=== PATIENT | male | born 1945 | race Caucasian/White ===

== ENCOUNTER 2018-11-30 08:34 | Day surgery (SDC) | payer MEDICARE, BC ==
[~2018-11-30 08:34] MED LIST: Cefuroxime 10 MG/ML SYRINGE EYELF SCH; Lidocaine 1% PF 2 ML SDV INJECT SCH; Pilocarpine 4% Ophth Soln 15 ML Bot EYELF SCH; Polymyxin B/Trimethoprim 10 ML Bottle EYELF SCH
--- NOTE | 2018-11-30 09:09 | PCM.PREANE ---
Preanesthetic Assessment - Anesthesia/Transfusion/Family Hx Anesthesia History: Prior Anesthesia Without Reaction Family History of Anesthesia Reaction: No Transfusion History: No Prior Transfusion(s) - Review of Systems General: No Symptoms Pulmonary: No Symptoms Cardiovascular: No Symptoms Gastrointestinal: No Symptoms Neurological: No Symptoms Other: Reports: None - Physical Assessment NPO Status Date: 11/29/18 NPO Status Time: 22:00 Pulse: 61 O2 Sat by Pulse Oximetry: 97 Respiratory Rate: 16 Blood Pressure: 123/59 Temperature: 98.2 C Weight: 62.7 kg ASA Class: 2 Mental Status: Alert & Oriented x3 Airway Class: Mallampati = 1 Dentition: Reports: Normal Dentition Thyro-Mental Finger Breadths: 3 Mouth Opening Finger Breadths: 3 ROM/Head Extension: Full Lungs: Clear to Auscultation, Normal Respiratory Effort Cardiovascular: Regular Rate, Regular Rhythm - Allergies Allergies/Adverse Reactions: Allergies Allergy/AdvReac Type Severity Reaction Status Date / Time amoxicillin [From Augmentin] Allergy Cannot Verified 11/29/18 06:59 Remember clavulanic acid Allergy Cannot Verified 11/29/18 06:59 [From Augmentin] Remember clindamycin Allergy Cannot Verified 11/29/18 06:59 Remember diclofenac [From Voltaren] Allergy Cannot Verified 11/29/18 06:59 Remember paroxetine [From Paxil] Allergy Cannot Verified 11/29/18 06:59 Remember sulfamethoxazole Allergy Cannot Verified 11/29/18 06:59 [From Bactrim] Remember trimethoprim [From Bactrim] Allergy Cannot Verified 11/29/18 06:59 Remember - Acknowledgements Anesthesia Type Planned: MAC Pt an Appropriate Candidate for the Planned Anesthesia: Yes Alternatives and Risks of Anesthesia Discussed w Pt/Guardian: Yes Pt/Guardian Understands and Agrees with Anesthesia Plan: Yes PreAnesthesia Questionnaire HEENT History: Reports: Cataract Cardiovascular History: Reports: None, Other (See Below) (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, does see iron handler for this, pt states does get "a little light headed", no other symptoms with episodes) Respiratory History: Reports: None Gastrointestinal History: Reports: None Genitourinary History: Reports: None Musculoskeletal History: Reports: Arthritis Neurological History: Reports: None Psychiatric History: Reports: Anxiety, Depression Endocrine/Metabolic History: Reports: None - Past Surgical History HEENT Surgical History: Reports: Tonsillectomy Cardiovascular Surgical History: Reports: None Respiratory Surgical History: Reports: None GI Surgical History: Reports: Colonoscopy Male Surgical History: Reports: TURP-Transurethral Resection of Prostate Musculoskeletal Surgical History: Reports: Shoulder Surgery ((R) rotator cuff, bone spur) - SUBSTANCE USE Smoking Status *Q: Never Smoker - HOME MEDS Home Medications: Home Meds Acetaminophen [Tylenol] 650 mg PO Q4H PRN 11/29/18 [History] Bifidobacterium Infantis [Align] 10.5 mg PO DAILY 11/29/18 [History] Bismuth Subsalicylate [Pepto Bismol] 1 dose PO ASDIRECTED 11/29/18 [History] Calcium Carbonate [Calcium] 500 mg PO DAILY 11/29/18 [History] Loperamide [Imodium] 2 mg PO ASDIRECTED 11/29/18 [History] Multivitamin [Poly-Vitamin] 1 tab PO DAILY 11/29/18 [History] Psyllium [Metamucil] 1 cap PO ASDIRECTED 11/29/18 [History] Sertraline [Zoloft] 50 mg PO QAM 11/29/18 [History] Sertraline [Zoloft] 150 mg PO QPM 11/29/18 [History] - CURRENT (IN HOUSE) MEDS Current Meds: Current Medications Brimonidine Tartrate (Alphagan 0.2% Ophth Soln) 0 ml EYELF ASDIRECTED CORRY Stop: 11/30/18 18:00 Cefuroxime Sodium (Zinacef) 0 mg EYELF ASDIRECTED CORRY Stop: 11/30/18 18:00 Lidocaine HCl (Xylocaine-Mpf 1%) 0 ml INJECT ASDIRECTED CORRY Stop: 11/30/18 18:00 Ofloxacin (Ocuflox 0.3% Ophth Soln) 0 ml EYELF ASDIRECTED CORRY Stop: 11/30/18 18:00 Phenylephrine HCl (Shanatnu-Synephrine 2.5% Ophth Soln) 0 ml EYELF ASDIRECTED CORRY Stop: 11/30/18 18:00 Pilocarpine HCl (Pilocar 4% Ophth Soln) 0 ml EYELF ASDIRECTED CORRY Stop: 11/30/18 18:00 Tetracaine HCl (Tetracaine 0.5% Steri-Unit Maria Guadalupe) 0 ml EYELF ASDIRECTED CORRY Stop: 11/30/18 18:00 Tropicamide (Mydriacyl 1% Ophth Soln) 0 ml EYELF ASDIRECTED CORRY Stop: 11/30/18 18:00
[2018-11-30] MEDS: Ofloxacin 0.3% Ophth Soln 5 ML Bottle EYELF SCH ×2 (09:13→09:50)
[2018-11-30] MEDS: Brimonidine 0.2% Ophth Soln 5 ML Bottle EYELF SCH ×3 (09:18→12:28)
[2018-11-30] MEDS: Phenylephrine 2.5% Ophth Soln 2 ML Bot EYELF SCH ×6 (09:23→12:10)
[2018-11-30] MEDS: Tropicamide 1% Ophth Soln 15 ML Bottle EYELF SCH ×4 (09:27→10:29)
[2018-11-30] MEDS: Tetracaine HCl/PF 0.5% 4 ML Bottle EYELF SCH ×3 (11:12→12:15)
--- NOTE | 2018-11-30 12:32 | PCM48HPAN ---
Post Anesthesia Note - EVALUATION WITHIN 48HRS OF ANESTHETIC Vital Signs in Normal Range: Yes Patient Participated in Evaluation: Yes Respiratory Function Stable: Yes Airway Patent: Yes Cardiovascular Function Stable: Yes Hydration Status Stable: Yes Pain Control Satisfactory: Yes Nausea and Vomiting Control Satisfactory: Yes Mental Status Recovered: Yes Pulse Rate: 58 SaO2: 96 Resp Rate: 16 Temperature: 98.2 C Blood Pressure: 118/16
== END 2018-11-30 12:38 | disposition home or self-care (01) ==
LOC: JD.SDS 08:34
PROVIDERS: ATTEND Ophthalmology
DX: H25.813 Combined forms of age-related cataract, bilateral (principal); F41.9 Anxiety disorder, unspecified; F32.9 Major depressive disorder, single episode, unspecified; Z88.1 Allergy status to other antibiotic agents; Z88.8 Allergy status to other drugs, medicaments and biological substances; Z88.0 Allergy status to penicillin; Z88.2 Allergy status to sulfonamides; Z79.899 Other long term (current) drug therapy
CPT/HCPCS: 66984; A9270; C1780; J0697; J2001

== ENCOUNTER 2018-12-28 08:22 | Day surgery (SDC) | payer MEDICARE, BC ==
[~2018-12-28 08:22] MED LIST changes: -Cefuroxime 10 MG/ML SYRINGE EYELF SCH; +Cefuroxime 10 MG/ML SYRINGE EYERT SCH; -Pilocarpine 4% Ophth Soln 15 ML Bot EYELF SCH; +Pilocarpine 4% Ophth Soln 15 ML Bot EYERT SCH; -Polymyxin B/Trimethoprim 10 ML Bottle EYELF SCH
[2018-12-28] MEDS: Ofloxacin 0.3% Ophth Soln 5 ML Bottle EYERT SCH ×3 (08:32→10:17)
[2018-12-28] MEDS: Brimonidine 0.2% Ophth Soln 5 ML Bottle EYERT SCH ×3 (08:39→10:17)
--- NOTE | 2018-12-28 08:40 | PCM.PREANE ---
Preanesthetic Assessment - Anesthesia/Transfusion/Family Hx Anesthesia History: Prior Anesthesia Without Reaction Family History of Anesthesia Reaction: No Transfusion History: No Prior Transfusion(s) - Review of Systems General: No Symptoms Pulmonary: No Symptoms Cardiovascular: No Symptoms Gastrointestinal: No Symptoms Neurological: No Symptoms Other: Reports: None - Physical Assessment NPO Status Date: 12/27/18 NPO Status Time: 20:00 Pulse: 63 O2 Sat by Pulse Oximetry: 98 Respiratory Rate: 20 Blood Pressure: 103/57 Temperature: 98.3 C Height: 1.78 m Weight: 63.503 kg ASA Class: 2 Mental Status: Alert & Oriented x3 Airway Class: Mallampati = 2 Dentition: Reports: Normal Dentition Thyro-Mental Finger Breadths: 3 Mouth Opening Finger Breadths: 3 ROM/Head Extension: Full Lungs: Clear to Auscultation, Normal Respiratory Effort Cardiovascular: Regular Rate, Regular Rhythm - Allergies Allergies/Adverse Reactions: Allergies Allergy/AdvReac Type Severity Reaction Status Date / Time amoxicillin [From Augmentin] Allergy Itching Verified 12/27/18 10:48 clavulanic acid Allergy Itching Verified 12/27/18 10:48 [From Augmentin] sulfamethoxazole Allergy Itching Verified 12/27/18 10:48 [From Bactrim] trimethoprim [From Bactrim] Allergy Itching Verified 12/27/18 10:48 clindamycin AdvReac Diarrhea Verified 12/27/18 12:37 diclofenac [From Voltaren] AdvReac Diarrhea Verified 12/27/18 12:37 paroxetine [From Paxil] AdvReac Stomach Verified 12/27/18 12:37 Upset - Acknowledgements Anesthesia Type Planned: MAC Pt an Appropriate Candidate for the Planned Anesthesia: Yes Alternatives and Risks of Anesthesia Discussed w Pt/Guardian: Yes Pt/Guardian Understands and Agrees with Anesthesia Plan: Yes PreAnesthesia Questionnaire HEENT History: Reports: Cataract Cardiovascular History: Reports: None, Other (See Below) (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, does see intelligence operations for this, pt states does get "a little light headed", no other symptoms with episodes) Respiratory History: Reports: None Gastrointestinal History: Reports: None Genitourinary History: Reports: None Musculoskeletal History: Reports: Arthritis Neurological History: Reports: None Psychiatric History: Reports: Anxiety, Depression Endocrine/Metabolic History: Reports: None - Past Surgical History HEENT Surgical History: Reports: Cataract Surgery ((B) feet), Naso-Sinus Surgery , Oral Surgery, Tonsillectomy Cardiovascular Surgical History: Reports: None Respiratory Surgical History: Reports: None GI Surgical History: Reports: Colonoscopy, EGD Male Surgical History: Reports: TURP-Transurethral Resection of Prostate Neurological Surgical History: Reports: Other (See Below) Musculoskeletal Surgical History: Reports: Shoulder Surgery ((R) rotator cuff, bone spur) - SUBSTANCE USE Smoking Status *Q: Never Smoker - HOME MEDS Home Medications: Home Meds Acetaminophen [Tylenol] 650 mg PO Q4H PRN 11/29/18 [History] Bifidobacterium Infantis [Align] 4 mg PO DAILY 11/29/18 [History] Calcium Carbonate [Calcium] 1,000 mg PO DAILY 11/29/18 [History] Loperamide [Imodium] 2 mg PO ASDIRECTED PRN 11/29/18 [History] Multivitamin [Poly-Vitamin] 1 tab PO DAILY 11/29/18 [History] Psyllium [Metamucil] 1 cap PO TID 11/29/18 [History] Sertraline [Zoloft] 150 mg PO DAILY 11/29/18 [History] Al-Glutamine 4,500 mg PO DAILY 12/27/18 [History] Bismuth Subsalicylate [Pepto Bismol] 6 tab PO ASDIRECTED 12/27/18 [History] - CURRENT (IN HOUSE) MEDS Current Meds: Current Medications Brimonidine Tartrate (Alphagan 0.2% Ophth Soln) 0 ml EYERT ASDIRECTED CORRY Stop: 12/28/18 18:00 Cefuroxime Sodium (Zinacef) 0 mg EYERT ASDIRECTED CORRY Stop: 12/28/18 18:00 Lidocaine HCl (Xylocaine-Mpf 1%) 0 ml INJECT ASDIRECTED CORRY Stop: 12/28/18 18:00 Ofloxacin (Ocuflox 0.3% Ophth Soln) 0 ml EYERT ASDIRECTED CORRY Stop: 12/28/18 18:00 Last Admin: 12/28/18 08:32 Dose: 1 drop Phenylephrine HCl (Shantanu-Synephrine 2.5% Ophth Soln) 0 ml EYERT ASDIRECTED CORRY Stop: 12/28/18 18:00 Pilocarpine HCl (Pilocar 4% Ophth Soln) 0 ml EYERT ASDIRECTED CORRY Stop: 12/28/18 18:00 Tetracaine HCl (Tetracaine 0.5% Steri-Unit Maria Guadalupe) 0 ml EYERT ASDIRECTED CORRY Stop: 12/28/18 18:00 Tropicamide (Mydriacyl 1% Ophth Soln) 0 ml EYERT ASDIRECTED CORRY Stop: 12/28/18 18:00
[2018-12-28] MEDS: Phenylephrine 2.5% Ophth Soln 2 ML Bot EYERT SCH ×5 (08:46→10:00)
[2018-12-28] MEDS: Tropicamide 1% Ophth Soln 15 ML Bottle EYERT SCH ×4 (08:51→09:46)
[2018-12-28] MEDS: Tetracaine HCl/PF 0.5% 4 ML Bottle EYERT SCH ×2 (09:56→10:06)
--- NOTE | 2018-12-28 10:22 | PCM48HPAN ---
Post Anesthesia Note - EVALUATION WITHIN 48HRS OF ANESTHETIC Vital Signs in Normal Range: Yes Patient Participated in Evaluation: Yes Respiratory Function Stable: Yes Airway Patent: Yes Cardiovascular Function Stable: Yes Hydration Status Stable: Yes Pain Control Satisfactory: Yes Nausea and Vomiting Control Satisfactory: Yes Mental Status Recovered: Yes Pulse Rate: 63 SaO2: 100 Resp Rate: 20 Temperature: 98.3 C Blood Pressure: 103/57
== END 2018-12-28 10:27 | disposition home or self-care (01) ==
LOC: JD.SDS 08:22
PROVIDERS: ATTEND Ophthalmology
DX: H25.811 Combined forms of age-related cataract, right eye (principal); H43.813 Vitreous degeneration, bilateral; H35.373 Puckering of macula, bilateral; H35.3131 Nonexudative age-related macular degeneration, bilateral, early dry stage; F41.9 Anxiety disorder, unspecified; F32.9 Major depressive disorder, single episode, unspecified; Z98.42 Cataract extraction status, left eye; Z96.1 Presence of intraocular lens; Z79.899 Other long term (current) drug therapy; Z88.8 Allergy status to other drugs, medicaments and biological substances; Z88.1 Allergy status to other antibiotic agents; Z88.2 Allergy status to sulfonamides
CPT/HCPCS: 66984; A9270; C1780; J0697; J2001

== ENCOUNTER 2020-05-29 15:08 | Emergency (ER) | payer MEDICARE, BC ==
[2020-05-29] MEDS ORDERED: Sodium Chloride 0.9% 10 ML Syringe FLUSH PRN (15:31)
--- NOTE | 2020-05-29 16:12 | EDM.PDOC ---
<Irvin Dye - Last Filed: 05/29/20 15:59> ED HPI GENERAL MEDICAL PROBLEM - General Chief Complaint: Cardiovascular Problem Stated Complaint: RAPID HEART RATE SENT BY [facility] Time Seen by Provider: 05/29/20 15:31 Source of Information: Reports: Patient History Limitations: Reports: No Limitations - History of Present Illness INITIAL COMMENTS - FREE TEXT/NARRATIVE: Mr. Cha is a 74 YO male that presents to the ED with pain in his chest and a rapid heart rate. Shortly after waking up this morning, he began to experience dizziness, chest pain located behind the sternum, diaphoresis, and shortness of breath. He says that these symptoms are intermittent and has experienced several episodes of them today. Pain is described as a dull ache located behind the sternum. He was diagnosed with a tachyarrhythmia several years ago. Today's episode is described as similar to past incidents but worse. He was seeing Dr. James at [facility] in [place] until approximately three years ago. Possibility of ablation was considered at that time but was not going to be performed until symptoms began interfering with daily activities. Currently not on medication for arrhythmias. Denies syncope, nausea, vomiting, and abdominal pain. Has not taken any OTC medications for pain relief. Onset: Today, Sudden Duration: Hour(s): Location: Reports: Chest Quality: Reports: Ache, Dull Improves with: Reports: Rest Worsens with: Reports: Movement Associated Symptoms: Reports: Shortness of Breath, Other (Dizziness) - Related Data Allergies Allergy/AdvReac Type Severity Reaction Status Date / Time amoxicillin [From Augmentin] Allergy Itching Verified 05/29/20 15:24 clavulanic acid Allergy Itching Verified 05/29/20 15:24 [From Augmentin] sulfamethoxazole Allergy Itching Verified 05/29/20 15:24 [From Bactrim] trimethoprim [From Bactrim] Allergy Itching Verified 05/29/20 15:24 clindamycin AdvReac Diarrhea Verified 05/29/20 15:24 diclofenac [From Voltaren] AdvReac Diarrhea Verified 05/29/20 15:24 paroxetine [From Paxil] AdvReac Stomach Verified 05/29/20 15:24 Upset Home Meds: Home Meds Calcium Carbonate [Calcium] 1,000 mg PO DAILY 11/29/18 [History] Loperamide [Imodium] 2 mg PO ASDIRECTED PRN 11/29/18 [History] Multivitamin [Poly-Vitamin] 1 tab PO DAILY 11/29/18 [History] Psyllium [Metamucil] 1 cap PO TID 11/29/18 [History] Sertraline [Zoloft] 150 mg PO QPM 11/29/18 [History] Acetaminophen [Tylenol] 650 mg PO Q4H PRN 05/20/19 [History] Sertraline [Zoloft] 50 mg PO QAM 05/20/19 [History] Past Medical History HEENT History: Reports: Cataract Cardiovascular History: Reports: Other (See Below) (Tachyarrhythmia. Specific rhythm not stated by patient.) Gastrointestinal History: Reports: Diverticulosis, Gastritis, Hemorrhoids, Irritable Bowel Syndrome, Other (See Below) Other Gastrointestinal History: colitis Genitourinary History: Reports: BPH Musculoskeletal History: Reports: Arthritis, Back Pain, Chronic, Neck Pain, Chronic, Osteoporosis Psychiatric History: Reports: Anxiety, Depression - Past Surgical History HEENT Surgical History: Reports: Cataract Surgery, Naso-Sinus Surgery, Oral Surgery, Tonsillectomy Cardiovascular Surgical History: Reports: None Respiratory Surgical History: Reports: None GI Surgical History: Reports: Colonoscopy, EGD Male Surgical History: Reports: Prostate Biopsy, TURP-Transurethral Resection of Prostate, Other (See Below) Other Male Surgeries/Procedures: cystoscopy Endocrine Surgical History: Reports: None Neurological Surgical History: Reports: None, Other (See Below) Musculoskeletal Surgical History: Reports: Shoulder Surgery Other Musculoskeletal Surgeries/Procedures:: hammertoe correction Oncologic Surgical History: Reports: None Dermatological Surgical History: Reports: None Social & Family History - Tobacco Use Smoking Status *Q: Never Smoker - Caffeine Use Caffeine Use: Reports: Soda - Recreational Drug Use Recreational Drug Use: No ED ROS GENERAL - Review of Systems Review Of Systems: See Below Constitutional: Reports: Diaphoresis Respiratory: Reports: Shortness of Breath (During episodes of chest p ) Cardiovascular: Reports: Chest Pain, Lightheadedness GI/Abdominal: Denies: Abdominal Pain, Nausea, Vomiting Neurological: Reports: Dizziness ED EXAM, GENERAL - Physical Exam Exam: See Below Exam Limited By: No Limitations General Appearance: Alert, No Apparent Distress Eye Exam: Bilateral Eye: PERRL Head: Atraumatic, Normocephalic Respiratory/Chest: No Respiratory Distress, Lungs Clear, Normal Breath Sounds, No Accessory Muscle Use, Chest Non-Tender Cardiovascular: Regular Rate, Rhythm, No Edema, No Gallop, No JVD, No Murmur, No Rub GI/Abdominal: Normal Bowel Sounds, Soft, Non-Tender, No Distention Neurological: Alert, Oriented Skin Exam: Warm, Dry, Normal Color Departure - Departure Disposition: DC/Tfer to Acute Hospital 02 Clinical Impression: NSTEMI (non-ST elevated myocardial infarction) Referrals: Zoey Chaidez NP [Primary Care Provider] - Forms: ED Department Discharge Sepsis Event Note (ED) - Evaluation Sepsis Screening Result: No Definite Risk <Katherine Belle - Last Filed: 05/29/20 18:01> EKG INTERPRETATION EKG Date: 05/29/20 Time: 17:21 Rhythm: NSR Rate (Beats/Min): 59 [place]: Normal P-Wave: Present QRS: Normal ST-T: Normal QT: Normal Comparison: No Change EKG Interpretation Comments: No obvious ischemia or acute ST changes noted, reviewed by myself and Dr. Green. Course - Vital Signs Last Recorded V/S: Last Vital Signs Temp 97.4 F 05/29/20 15:15 Pulse 61 05/29/20 15:15 Resp 20 05/29/20 15:15 BP 106/68 05/29/20 15:15 Pulse Ox 98 05/29/20 15:15 - Orders/Labs/Meds Orders: Active Orders 24 hr Category Date Time Status EKG 12 Lead [EKG Documentation Completion] [RC] URGENT Care 05/29/20 15:25 Active Peripheral IV Care [RC] . DIRECTED Care 05/29/20 15:32 Active CORONAVIRUS COVID-19 RAPID [MOLEC] Stat Lab 05/29/20 17:34 Received Heparin Sodium/D5W [Heparin 25,000 Units in D5W 500 ML] Med 05/29/20 16:26 Ordered 25,000 units in 500 ml IV TITRATE Sodium Chloride 0.9% [Saline Flush] Med 05/29/20 15:31 Active 10 ml FLUSH ASDIRECTED PRN Peripheral IV Insertion Adult [OM.PC] Stat Oth 05/29/20 15:32 Ordered Medication Orders Heparin Sodium/Dextrose (Heparin 25,000 Units In D5w 500 Ml) 25,000 units in 500 mls @ 15.023 mls/hr IV TITRATE CORRY; Protocol Last Admin: 05/29/20 16:38 Dose: 12 units/kg/hr, 15.023 mls/hr Documented by: NELIDA Cosigned by: TATO Sodium Chloride (Saline Flush) 10 ml FLUSH ASDIRECTED PRN PRN Reason: Keep Vein Open Last Admin: 05/29/20 15:45 Dose: 10 ml Documented by: NELIDA Labs: Laboratory Tests 05/29/20 05/29/20 05/29/20 Range/Units 15:43 15:43 15:43 WBC 7.15 (4.23-9.07) K/mm3 RBC 4.79 (4.63-6.08) M/mm3 Hgb 14.2 (13.7-17.5) gm/dl Hct 43.3 (40.1-51.0) % MCV 90.4 (79.0-92.2) fl MCH 29.6 (25.7-32.2) pg MCHC 32.8 (32.2-35.5) g/dl RDW Std Deviation 42.6 (35.1-43.9) fL Plt Count 159 L (163-337) K/mm3 MPV 9.8 (9.4-12.3) fl Neut % (Auto) 71.2 H (34.0-67.9) % Lymph % (Auto) 17.5 L (21.8-53.1) % [place] % (Auto) 7.7 (5.3-12.2) % Eos % (Auto) 2.9 (0.8-7.0) Baso % (Auto) 0.3 (0.1-1.2) % Neut # (Auto) 5.09 (1.78-5.38) K/mm3 Lymph # (Auto) 1.25 L (1.32-3.57) K/mm3 [place] # (Auto) 0.55 (0.30-0.82) K/mm3 Eos # (Auto) 0.21 (0.04-0.54) K/mm3 Baso # (Auto) 0.02 (0.01-0.08) K/mm3 PT 10.9 (9.7-12.0) SECONDS INR 1.00 APTT 25 (22-31) SECONDS Sodium 140 (136-145) mEq/L Potassium 4.2 (3.5-5.1) mEq/L Chloride 104 (98-107) mEq/L Carbon Dioxide 30 (21-32) mEq/L Anion Gap 10.2 (5-15) BUN 20 H (7-18) mg/dL Creatinine 1.1 (0.7-1.3) mg/dL Est Cr Clr Drug Dosing 52.16 mL/min Estimated GFR (MDRD) > 60 (>60) mL/min BUN/Creatinine Ratio 18.2 H (14-18) Glucose 81 L (83-115) mg/dL Calcium 8.9 (8.5-10.1) mg/dL Magnesium 2.2 (1.8-2.4) mg/dl Total Bilirubin 0.4 (0.2-1.0) mg/dL AST 24 (15-37) U/L ALT 26 (16-63) U/L Alkaline Phosphatase 65 (46-116) U/L Troponin I 0.216 H* (0.00-0.056) ng/mL NT-Pro-B Natriuret Pep (0-125) pg/mL Total Protein 6.9 (6.4-8.2) g/dl Albumin 3.6 (3.4-5.0) g/dl Globulin 3.3 gm/dL Albumin/Globulin Ratio 1.1 (1-2) // Range/Units 15:43 WBC (4.23-9.07) K/mm3 RBC (4.63-6.08) M/mm3 Hgb (13.7-17.5) gm/dl Hct (40.1-51.0) % MCV (79.0-92.2) fl MCH (25.7-32.2) pg MCHC (32.2-35.5) g/dl RDW Std Deviation (35.1-43.9) fL Plt Count (163-337) K/mm3 MPV (9.4-12.3) fl Neut % (Auto) (34.0-67.9) % Lymph % (Auto) (21.8-53.1) % [place] % (Auto) (5.3-12.2) % Eos % (Auto) (0.8-7.0) Baso % (Auto) (0.1-1.2) % Neut # (Auto) (1.78-5.38) K/mm3 Lymph # (Auto) (1.32-3.57) K/mm3 [place] # (Auto) (0.30-0.82) K/mm3 Eos # (Auto) (0.04-0.54) K/mm3 Baso # (Auto) (0.01-0.08) K/mm3 PT (9.7-12.0) SECONDS INR APTT (22-31) SECONDS Sodium (136-145) mEq/L Potassium (3.5-5.1) mEq/L Chloride (98-107) mEq/L Carbon Dioxide (21-32) mEq/L Anion Gap (5-15) BUN (7-18) mg/dL Creatinine (0.7-1.3) mg/dL Est Cr Clr Drug Dosing mL/min Estimated GFR (MDRD) (>60) mL/min BUN/Creatinine Ratio (14-18) Glucose (83-115) mg/dL Calcium (8.5-10.1) mg/dL Magnesium (1.8-2.4) mg/dl Total Bilirubin (0.2-1.0) mg/dL AST (15-37) U/L ALT (16-63) U/L Alkaline Phosphatase (46-116) U/L Troponin I (0.00-0.056) ng/mL NT-Pro-B Natriuret Pep 606 H (0-125) pg/mL Total Protein (6.4-8.2) g/dl Albumin (3.4-5.0) g/dl Globulin gm/dL Albumin/Globulin Ratio (1-2) Meds: Medications Generic Name Dose Route Start Last Admin Trade Name Freq PRN Reason Stop Dose Admin Heparin Sodium/Dextrose 25,000 units in 500 mls @ 15.023 mls/hr 05/29/20 16:26 05/29/20 16:38 Heparin 25,000 Units In D5w 500 Ml IV 12 units/kg/hr TITRATE CORRY 15.023 mls/hr Administration Protocol 12 UNITS/KG/HR Sodium Chloride 10 ml 05/29/20 15:31 05/29/20 15:45 Saline Flush FLUSH 10 ml ASDIRECTED PRN Administration Keep Vein Open Discontinued Medications Generic Name Dose Route Start Last Admin Trade Name Breezy PRN Reason Stop Dose Admin Aspirin 324 mg 05/29/20 16:25 05/29/20 16:35 Aspirin PO 05/29/20 16:26 324 mg ONETIME ONE Administration Heparin Sodium (Porcine) 4,000 units 05/29/20 16:25 05/29/20 16:36 Heparin Sodium IVPUSH 05/29/20 16:26 4,000 units .BOLUS ONE Administration - Re-Assessments/Exams Free Text/Narrative Re-Assessment/Exam: 05/29/20 16:18 I have read and reviewed the student's HPI and examined the patient and agree with DARREN Hawthorne-student. Will obtain EKG, chest x-ray, baseline labs to rule out IN, patient is not suffering from any sort of tachyarrhythmias at today's exam, normal sinus rhythm 59 bpm, with what is perceived to be some T wave inversion in V1 and V2 and aVL, but these are also nonspecific findings. Otherwise no obvious ST depression or elevation noted. The provider at the [facility] was worried about getting him a stress test, possibly tomorrow, but it appears that this is not available at our facility tomorrow. We will try to get a Holter monitor lined up for outpatient management, and get him lined up for outpatient stress test sometime next week. 05/29/20 16:36 Patient's laboratory evaluation has returned, troponin I is elevated at 0.216 other laboratory evaluation is essentially within normal limits. Have ordered 224 mg aspirin and heparin bolus and drip for initial management. Patient will need transport to [place], he would prefer to go to [facility] for management, have called them and have been in contact with Dr. Chowdhury, hospitalist for further management. 05/29/20 18:00 Dr. Chowdhury hospitalist does accept for management, patient be transferred to [facility] in [place] for further evaluation and management. Departure - Departure Time of Disposition: 16:37 Reason for Transfer *Q: Other (NSTEMI) Condition: Good Sepsis Event Note (ED) - Focused Exam Vital Signs: Vital Signs Temp Pulse Resp BP Pulse Ox 05/29/20 15:15 97.4 F 61 20 106/68 98 - My Orders Last 24 Hours: My Active Orders 05/29/20 15:31 Sodium Chloride 0.9% [Saline Flush] 10 ml FLUSH ASDIRECTED PRN 05/29/20 15:32 Peripheral IV Care [RC] . DIRECTED Peripheral IV Insertion Adult [OM.PC] Stat 05/29/20 16:26 Heparin Sodium/D5W [Heparin 25,000 Units in D5W 500 ML] 25,000 units in 500 ml IV TITRATE 05/29/20 17:34 CORONAVIRUS COVID-19 RAPID [MOLEC] Stat - Assessment/Plan Last 24 Hours: My Active Orders 05/29/20 15:31 Sodium Chloride 0.9% [Saline Flush] 10 ml FLUSH ASDIRECTED PRN 05/29/20 15:32 Peripheral IV Care [RC] . DIRECTED Peripheral IV Insertion Adult [OM.PC] Stat 05/29/20 16:26 Heparin Sodium/D5W [Heparin 25,000 Units in D5W 500 ML] 25,000 units in 500 ml IV TITRATE 05/29/20 17:34 CORONAVIRUS COVID-19 RAPID [MOLEC] Stat
[2020-05-29] MEDS ORDERED: Aspirin 81 MG Tab.Chew PO ONE (16:25)
[2020-05-29] MEDS ORDERED: Heparin Sodium 5,000 Units/ML Vial IVPUSH ONE (16:25)
[2020-05-29] MEDS ORDERED: Heparin Sodium/D5W 25,000 UNITS/500 ML BAG IV SCH (16:26)
--- NOTE | 2020-05-29 16:26 | CR ---
Chest: 2 views of the chest were obtained. Comparison: Prior chest x-ray of 05/30/17. Heart size and mediastinum are normal. Lungs are hyperinflated compatible with emphysematous change. No acute parenchymal change is seen. Slight degenerative change is noted within the spine. Prior resection of the distal right clavicle is noted. Impression: 1. Probable emphysematous change. 2. Nothing acute is otherwise appreciated. Diagnostic code #2 This report was dictated in MDT
== END 2020-05-29 18:57 ==
LOC: JD.ED 15:08
DX: I21.4 Non-ST elevation (NSTEMI) myocardial infarction (principal); F41.9 Anxiety disorder, unspecified; F32.9 Major depressive disorder, single episode, unspecified; Z20.828 Contact with and (suspected) exposure to other viral communicable diseases; Z88.1 Allergy status to other antibiotic agents; Z88.2 Allergy status to sulfonamides; Z88.6 Allergy status to analgesic agent; Z88.8 Allergy status to other drugs, medicaments and biological substances; Z79.899 Other long term (current) drug therapy
CPT/HCPCS: 36415; 71046; 80053; 83735; 83880; 84484; 85025; 85610; 85730; 93005; 96365; 96366; 96376; 99285; A9270; J1644; U0002; 93010; 99284

== ENCOUNTER 2021-03-08 18:44 | Observation (INO) | payer MEDICARE, BC ==
[2021-03-08] MEDS ORDERED: Sodium Chloride 0.9% 10 ML Syringe FLUSH PRN (19:27)
[2021-03-08] MEDS ORDERED: Morphine 4 MG/ML Syringe IVPUSH ONE ×2 (19:30→22:12)
--- NOTE | 2021-03-08 19:38 | EDM.PDOC ---
ED HPI GENERAL MEDICAL PROBLEM - General Chief Complaint: Back Pain or Injury Stated Complaint: FELL ON BACK Time Seen by Provider: 03/08/21 19:11 Source of Information: Reports: Patient History Limitations: Reports: No Limitations - History of Present Illness INITIAL COMMENTS - FREE TEXT/NARRATIVE: Patient arrived to ED by private vehicle Incident occurred about 1500 today He reports falling down a steep embankment, approximately 8 foot vertical distance States he got too close to the edge which was eroded and the ground gave way Complains primarily of pain to the right flank area Pain severity is rated 7/10, with intermittent "spasms" of severity 10/10 Pain is exacerbated by movement and certain positions Also has some difficulty breathing due to pain Denies neck or back pain Denies weakness or paresthesias of extremities Denies head injury or loss of consciousness Denies abdominal pain, nausea, vomiting He has not taken anything for pain Right Middle Back Pain Score (Numeric/FACES): 10 - Related Data Allergies Allergy/AdvReac Type Severity Reaction Status Date / Time amoxicillin [From Augmentin] Allergy Itching Verified 03/09/21 00:29 clavulanic acid Allergy Itching Verified 03/09/21 00:29 [From Augmentin] sulfamethoxazole Allergy Itching Verified 03/09/21 00:29 [From Bactrim] trimethoprim [From Bactrim] Allergy Itching Verified 03/09/21 00:29 clindamycin AdvReac Diarrhea Verified 03/09/21 00:29 diclofenac [From Voltaren] AdvReac Diarrhea Verified 03/09/21 00:29 paroxetine [From Paxil] AdvReac Stomach Verified 03/09/21 00:29 Upset Home Meds: Home Meds Calcium Carbonate [Calcium] 1,000 mg PO DAILY 11/29/18 [History] Loperamide [Imodium] 2 mg PO ASDIRECTED PRN 11/29/18 [History] Multivitamin [Poly-Vitamin] 1 tab PO DAILY 11/29/18 [History] Psyllium [Metamucil] 1 cap PO TID 11/29/18 [History] Sertraline [Zoloft] 150 mg PO BEDTIME 11/29/18 [History] Acetaminophen [Tylenol] 650 mg PO Q4H PRN 05/20/19 [History] Sertraline [Zoloft] 50 mg PO QAM 05/20/19 [History] Past Medical History HEENT History: Reports: Cataract Cardiovascular History: Reports: Other (See Below) (Tachyarrhythmia. Specific rhythm not stated by patient.) Respiratory History: Reports: None Gastrointestinal History: Reports: Diverticulosis, Gastritis, Hemorrhoids, Irritable Bowel Syndrome, Other (See Below) Other Gastrointestinal History: colitis Genitourinary History: Reports: BPH [employer] History: Reports: None Musculoskeletal History: Reports: Arthritis, Back Pain, Chronic, Neck Pain, Chronic, Osteoporosis Neurological History: Reports: None Psychiatric History: Reports: Anxiety, Depression Endocrine/Metabolic History: Reports: None Hematologic History: Reports: None Immunologic History: Reports: None Oncologic (Cancer) History: Reports: None Dermatologic History: Reports: None - Infectious Disease History Infectious Disease History: Reports: C-Difficile - Past Surgical History HEENT Surgical History: Reports: Cataract Surgery, Naso-Sinus Surgery, Oral Surgery, Tonsillectomy Respiratory Surgical History: Reports: None GI Surgical History: Reports: Colonoscopy, EGD Male Surgical History: Reports: Prostate Biopsy, TURP-Transurethral Resection of Prostate, Other (See Below) Other Male Surgeries/Procedures: cystoscopy Endocrine Surgical History: Reports: None Neurological Surgical History: Reports: None, Other (See Below) Musculoskeletal Surgical History: Reports: Shoulder Surgery Other Musculoskeletal Surgeries/Procedures:: hammertoe correction Social & Family History - Tobacco Use Tobacco Use Status *Q: Never Tobacco User Second Hand Smoke Exposure: No - Caffeine Use Caffeine Use: Reports: Soda - Recreational Drug Use Recreational Drug Use: No ED ROS GENERAL - Review of Systems Review Of Systems: See Below Free Text/Narrative/Comment: Constitutional - no fever Eyes - no eye pain; no visual disturbance ENT - no rhinorrhea; no congestion; no epistaxis Cardiovascular - right posterior/lateral chest pain Respiratory - shortness of breath; no cough Gastrointestinal - right flank pain; no abdominal pain; no nausea; no vomiting; no diarrhea Genitourinary - no dysuria Musculoskeletal - no neck pain; no back pain; no extremity injury Neurological - no headache; no speech disturbance; no weakness ED EXAM, GENERAL - Physical Exam Exam: See Below Free Text/Narrative:: Constitutional - awake; alert; moderate to severe pain distress Head - no facial swelling or weakness Eyes - extra ocular motion intact; conjunctiva normal ENT - no nasal deformity; no epistaxis; normal phonation; mucus membranes moist; Neck - no swelling; no cervical spine tenderness Respiratory - normal respiratory effort; no crackles or wheezing; no stridor; equal breath sounds bilaterally; no crepitus; severe tenderness to thoracic palpation right infra axillary area Cardiovascular - regular rhythm; normal rate; S1; S2; grade 1/6 systolic murmur GI/Abdomen - normal bowel sounds; soft; no tenderness; no rebound; no guarding; no mass Musculoskeletal - grossly normal strength and motion, mild limitation of right upper extremity motion due to flank pain; no swelling or deformity; no thoracic or lumbar vertebral tenderness; localized ecchymosis 4-5 cm size flexor aspect left forearm Skin - warm; dry; curvilinear ecchymosis right costovertebral area with tenderness on palpation Neurologic - normal speech; no weakness; gait intact Psychiatric - normal mood and affect; memory and attention normal Course - Vital Signs Text/Narrative:: . Considered etiologies included: Fall, contusion, rib fracture, pneumothorax, blunt abdominal trauma Symptoms and examination discussed Analgesic treatment was provided with IV morphine Investigations were initiated At reevaluation he noted no significant change in pain severity A second dose of morphine was provided for further analgesic treatment Results were discussed, with findings for multiple right rib fractures, no acute intra-abdominal abnormality In consideration of his pain severity, age, and functional impairment due to pain, admission was felt to be appropriate Case was discussed with Dr. Rodriguez (hospitalist) at [id number] who accepted patient for admission Bridge orders were provided Last Recorded V/S: Last Vital Signs Temp 36.3 C 03/08/21 18:57 Pulse 55 L 03/08/21 18:57 Resp 12 03/08/21 18:57 BP 121/85 03/08/21 18:57 Pulse Ox 98 03/08/21 18:57 - Orders/Labs/Meds Orders: Active Orders 24 hr Category Date Time Status Abdomen Pelvis w Cont [CT] Stat Exams 03/08/21 19:29 Taken Chest 2V [CR] Stat Exams 03/08/21 19:27 Taken Sodium Chloride 0.9% [Saline Flush] Med 03/08/21 19:27 Active 10 ml FLUSH ASDIRECTED PRN Peripheral IV Insertion Adult [OM.PC] Stat Oth 03/08/21 19:26 Ordered Medication Orders Hydromorphone HCl (Hydromorphone 1 Mg/Ml Syringe) 1 mg IVPUSH Q4H PRN PRN Reason: Pain (severe 7-10) Oxycodone/Acetaminophen (Acetaminophen/Oxycodone 325-5 Mg Tab) 1 tab PO Q4H PRN PRN Reason: Pain (moderate 4-6) Last Admin: 03/09/21 00:46 Dose: 1 tab Documented by: FRANK Sodium Chloride (Sodium Chloride 0.9% 10 Ml Syringe) 10 ml FLUSH ASDIRECTED PRN PRN Reason: Keep Vein Open Last Admin: 03/08/21 19:36 Dose: 10 ml Documented by: NELIDA Labs: Laboratory Tests 03/08/21 03/08/21 03/08/21 Range/Units 19:33 19:33 21:53 WBC 15.99 H (4.23-9.07) K/mm3 RBC 4.76 (4.63-6.08) M/mm3 Hgb 14.3 (13.7-17.5) gm/dl Hct 43.2 (40.1-51.0) % MCV 90.8 (79.0-92.2) fl MCH 30.0 (25.7-32.2) pg MCHC 33.1 (32.2-35.5) g/dl RDW Std Deviation 42.6 (35.1-43.9) fL Plt Count 177 (163-337) K/mm3 MPV 9.6 (9.4-12.3) fl Neut % (Auto) 84.2 H (34.0-67.9) % Lymph % (Auto) 8.5 L (21.8-53.1) % Bland % (Auto) 6.1 (5.3-12.2) % Eos % (Auto) 0.8 (0.8-7.0) Baso % (Auto) 0.1 (0.1-1.2) % Neut # (Auto) 13.48 H (1.78-5.38) K/mm3 Lymph # (Auto) 1.36 (1.32-3.57) K/mm3 Bland # (Auto) 0.97 H (0.30-0.82) K/mm3 Eos # (Auto) 0.12 (0.04-0.54) K/mm3 Baso # (Auto) 0.02 (0.01-0.08) K/mm3 Manual Slide Review Normal smear Sodium 142 (136-145) mEq/L Potassium 3.8 (3.5-5.1) mEq/L Chloride 103 (98-107) mEq/L Carbon Dioxide 31 (21-32) mEq/L Anion Gap 11.8 (5-15) BUN 23 H (7-18) mg/dL Creatinine 1.2 (0.7-1.3) mg/dL Est Cr Clr Drug Dosing 46.41 mL/min Estimated GFR (MDRD) 59 (>60) mL/min BUN/Creatinine Ratio 19.2 H (14-18) Glucose 142 H (83-115) mg/dL Calcium 8.3 L (8.5-10.1) mg/dL Total Bilirubin 0.3 (0.2-1.0) mg/dL AST 21 (15-37) U/L ALT 26 (16-63) U/L Alkaline Phosphatase 103 (46-116) U/L Total Protein 6.9 (6.4-8.2) g/dl Albumin 3.7 (3.4-5.0) g/dl Globulin 3.2 gm/dL Albumin/Globulin Ratio 1.2 (1-2) Urine Color Yellow (Yellow) Urine Appearance Clear (Clear) Urine pH 7.0 (5.0-8.0) Ur Specific [place] 1.015 (1.005-1.030) Urine Protein Negative (Negative) Urine Glucose (UA) Negative (Negative) Urine Ketones Negative (Negative) Urine Occult Blood Negative (Negative) Urine Nitrite Negative (Negative) Urine Bilirubin Negative (Negative) Urine Urobilinogen 0.2 (0.2-1.0) Ur Leukocyte Esterase Negative (Negative) Urine RBC 0-5 (0-5) /hpf Urine WBC 0-5 (0-5) /hpf Ur Squamous Epith Cells 0-5 (0-5) /hpf Urine Bacteria Few (FEW) /hpf Urine Mucus Few (FEW) /hpf Meds: Medications Generic Name Dose Route Start Last Admin Trade Name Freq PRN Reason Stop Dose Admin Hydromorphone HCl 1 mg 03/09/21 00:32 Hydromorphone 1 Mg/Ml Syringe IVPUSH Q4H PRN Pain (severe 7-10) Oxycodone/Acetaminophen 1 tab 03/09/21 00:32 03/09/21 00:46 Acetaminophen/Oxycodone 325-5 Mg Tab PO 1 tab Q4H PRN Administration Pain (moderate 4-6) Sodium Chloride 10 ml 03/08/21 19:27 03/08/21 19:36 Sodium Chloride 0.9% 10 Ml Syringe FLUSH 10 ml ASDIRECTED PRN Administration Keep Vein Open Discontinued Medications Generic Name Dose Route Start Last Admin Trade Name Freq PRN Reason Stop Dose Admin Iopamidol 100 ml 03/08/21 20:12 03/08/21 20:30 Iopamidol 612 Mg/Ml 100 Ml Bottle IVPUSH 03/08/21 20:13 100 ml ONETIME ONE Administration Morphine Sulfate 4 mg 03/08/21 19:30 03/08/21 19:37 Morphine 4 Mg/Ml Syringe IVPUSH 03/08/21 19:31 4 mg ONETIME ONE Administration Morphine Sulfate 4 mg 03/08/21 22:12 03/08/21 22:25 Morphine 4 Mg/Ml Syringe IVPUSH 03/08/21 22:13 4 mg ONETIME ONE Administration Sodium Chloride 10 ml 03/08/21 20:12 03/08/21 20:30 Sodium Chloride 0.9% 10 Ml Syringe FLUSH 03/08/21 20:13 10 ml ONETIME ONE Administration - Radiology Interpretation Free Text/Narrative:: XR chest, 2 views, interpreted by bond underwriter: No pneumothorax, no infiltrate, no rib fractures appreciated CT abdomen/pelvis, IV contrast, preliminary radiology report: 1. Linear fractures to the right 9th, 10th, and 11th ribs. There is mild associated posttraumatic pleural thickening in the right lung base. 2. No other acute posttraumatic abdominal pelvic injuries appreciated. 3. Incidental findings as detailed ... Departure - Departure Time of Disposition: 22:43 Disposition: Refer to Observation Condition: Fair Clinical Impression: Fall with injury Qualifiers: Encounter type: initial encounter Qualified Code(s): W19.XXXA - Unspecified fall, initial encounter Ribs, multiple fractures Qualifiers: Encounter type: initial encounter Fracture type: closed Laterality: right Qualified Code(s): S22.41XA - Multiple fractures of ribs, right side, initial encounter for closed fracture - Discharge Information Sepsis Event Note (ED) - Evaluation Sepsis Screening Result: No Definite Risk - Focused Exam Vital Signs: Vital Signs Temp Pulse Resp BP Pulse Ox 03/08/21 18:57 36.3 C 55 L 12 121/85 98 - My Orders Last 24 Hours: My Active Orders 03/08/21 19:26 Peripheral IV Insertion Adult [OM.PC] Stat 03/08/21 19:27 Chest 2V [CR] Stat Sodium Chloride 0.9% [Saline Flush] 10 ml FLUSH ASDIRECTED PRN 03/08/21 19:29 Abdomen Pelvis w Cont [CT] Stat - Assessment/Plan Last 24 Hours: My Active Orders 03/08/21 19:26 Peripheral IV Insertion Adult [OM.PC] Stat 03/08/21 19:27 Chest 2V [CR] Stat Sodium Chloride 0.9% [Saline Flush] 10 ml FLUSH ASDIRECTED PRN 03/08/21 19:29 Abdomen Pelvis w Cont [CT] Stat
[2021-03-08] MEDS ORDERED: Sodium Chloride 0.9% 10 ML Syringe FLUSH ONE (20:12)
[2021-03-08] MEDS ORDERED: Iopamidol 612 MG/ML 100 ML Bottle IVPUSH ONE (20:12)
[2021-03-09] MEDS ORDERED: HYDROmorphone 1 MG/ML Syringe IVPUSH PRN (00:32)
[2021-03-09] MEDS: Acetaminophen/oxyCODONE 325-5 MG Tab PO PRN ×2 (00:46→06:09)
--- NOTE | 2021-03-09 07:07 | CR ---
Chest: 2 views of the chest were obtained. Comparison: Prior chest x-rays of 05/29/20 and 05/30/17. Heart size is slightly enlarged. Lungs show no acute parenchymal change. Slight granulomatous change is seen within the left lung. Bony structures are osteopenic. No definite acute osseous abnormality is appreciated. Impression: 1. Heart size is slightly enlarged. 2. Mild granulomatous change within the left lung. 3. Nothing acute is otherwise seen. Diagnostic code #2
--- NOTE | 2021-03-09 07:39 | CT ---
CT abdomen and pelvis Technique: Multiple axial sections were obtained through the abdomen and pelvis. Intravenous contrast was utilized. No oral contrast has been given. Reconstructed coronal and sagittal images were obtained. Comparison: Prior chest x-ray performed earlier on the same day (7:43 PM). Findings: Fractures are identified within the right ninth, tenth and eleventh posterior ribs. These are most likely acute. Slight pleural thickening is seen in these areas. Mild areas of pleural calcifications are seen. Mild areas of atelectasis are also noted within both lung bases. Low-density lesion is noted within the right lobe of the liver which I believe most likely represents a cyst measuring about 9 mm. No additional abnormalities are appreciated within the liver. Spleen appears normal in size. Minimal hiatal hernia is noted. Adrenal glands show no nodule. Pancreas shows no discrete abnormality. Gallbladder contains no calcified gallstones. Both kidneys show minimal low density findings compatible with probable minimal cysts. Several minimal nonobstructing calculi are seen within the right kidney. Atherosclerotic change is seen within the aorta with no aneurysm. Atherosclerotic change continues into the iliac vessels. No retroperitoneal adenopathy or mesenteric abnormalities are seen. Prostate gland is slightly enlarged with calcifications. Appendix is not definitely visualized. Slight degenerative change with mild scoliosis is noted within the spine. No acute osseous abnormality is otherwise seen. Impression: 1. Fractures within the right ninth through eleventh ribs posteriorly with mild adjacent pleural thickening. These rib fractures are likely acute. 2. Other findings as noted above. No other acute abnormality is seen. Diagnostic code #3 I agree with preliminary report from [facility], finalized on 03/08/21, 10:03 PM CDT, code 1
--- NOTE | 2021-03-09 08:25 | PCM.HP.2 ---
<Elijah James - Last Filed: 03/09/21 11:29> H&P History of Present Illness - General Date of Service: 03/09/21 Admit Problem/Dx: Admission Diagnosis/Problem Admission Diagnosis/Problem Rib injury Source of Information: Patient, Old Records, Provider, RN, RN Notes Reviewed History Limitations: Reports: No Limitations - History of Present Illness Initial Comments - Free Text/Narative: This is a 75-year-old male who presented to ED on 03/08/2021 with pain after a fall. Reports incident occurred around 1500 hrs. states he got too close to an edge of an embankment and the ground gave way leading to an approximately 8 foot fall. Reports 7 out of 10 pain in the right flank area is constant and intermittent spasms of 10 out of 10 pain. Reports pain is worsened with movement and certain positions. Denies any other neck or back pain. Reports shortness of breath due to the pain. Denies any weakness or paresthesias of extremities. Denies head injury, loss of consciousness, reymundo pain, nausea, vomiting. Stated he did not take anything prior to arrival. In the ED temp was 36.3 Celsius. Pulse 55. Respirations 12. Blood pressure 121/85. Pulse ox 90%. Labs are obtained showing a leukocytosis of 15.99. Hemoglobin 14.3. Platelet 177,000. Neutrophils are elevated 84.2. Sodium 142. Potassium 3.8. Chloride 103. Carbon dioxide 31. Anion gap 11.8. BUN is elevated 23. Creatinine 1.2. GFR is 59. Glucose 142. Bilirubin 0.3. AST is 21, ALT 26, alkaline phosphatase 103. Albumin is 3.7. UA is negative. Chest x-ray is obtained showing slightly enlarged heart size and mild granulomatous change within the left lung but nothing acute. CT of the abdomen and pelvis is obtained showing fractures within the right ninth through 11th ribs posteriorly and mild adjacent pleural thickening but no other acute abnormalities are noted. There are other incidental findings. He is given morphine, Dilaudid, and percocet for pain. It is felt given his advanced age, pain severity, and impairment due to pain that he should be admitted to the hospital. He subsequently admitted observation status to the medical surgical floor for pain management of his multiple rib fractures. He carries a history of tachyarrhythmia, diverticulosis, gastritis, IBS, BPH, arthritis, chronic back pain, chronic neck pain, osteoporosis, anxiety, depre ssion, prior C. difficile infection. He was never smoker. He is a full code. Right Middle Back Pain Score (Numeric/FACES): 8 - Related Data Allergies/Adverse Reactions: Allergies Allergy/AdvReac Type Severity Reaction Status Date / Time amoxicillin [From Augmentin] Allergy Itching Verified 03/09/21 00:29 clavulanic acid Allergy Itching Verified 03/09/21 00:29 [From Augmentin] sulfamethoxazole Allergy Itching Verified 03/09/21 00:29 [From Bactrim] trimethoprim [From Bactrim] Allergy Itching Verified 03/09/21 00:29 clindamycin AdvReac Diarrhea Verified 03/09/21 00:29 diclofenac [From Voltaren] AdvReac Diarrhea Verified 03/09/21 00:29 paroxetine [From Paxil] AdvReac Stomach Verified 03/09/21 00:29 Upset Home Medications: Home Meds Calcium Carbonate [Calcium] 1,000 mg PO DAILY 11/29/18 [History] Loperamide [Imodium] 2 mg PO ASDIRECTED PRN 11/29/18 [History] Multivitamin [Poly-Vitamin] 1 tab PO DAILY 11/29/18 [History] Psyllium [Metamucil] 1 cap PO TID 11/29/18 [History] Sertraline [Zoloft] 150 mg PO BEDTIME 11/29/18 [History] Acetaminophen [Tylenol] 650 mg PO Q4H PRN 05/20/19 [History] Sertraline [Zoloft] 50 mg PO QAM 05/20/19 [History] Past Medical History HEENT History: Reports: Other (See Below) Other HEENT History: wear glasses; voice is off Cardiovascular History: Reports: [place] Respiratory History: Reports: None Gastrointestinal History: Reports: Diverticulosis, GERD, Hemorrhoids, Irritable Bowel Syndrome, Other (See Below) Other Gastrointestinal History: colitis Genitourinary History: Reports: BPH COMMODITY TRADER History: Reports: None Musculoskeletal History: Reports: Arthritis, Back Pain, Chronic, Neck Pain, Chronic, Osteoporosis Neurological History: Reports: None Psychiatric History: Reports: Anxiety, Depression Endocrine/Metabolic History: Reports: Osteopenia Hematologic History: Reports: None Immunologic History: Reports: None Oncologic (Cancer) History: Reports: None Dermatologic History: Reports: None - Infectious Disease History Infectious Disease History: Reports: C-Difficile - Past Surgical History HEENT Surgical History: Reports: Cataract Surgery, Naso-Sinus Surgery, Oral Surgery, Tonsillectomy Cardiovascular Surgical History: Reports: None Respiratory Surgical History: Reports: None GI Surgical History: Reports: Colonoscopy, EGD Male Surgical History: Reports: Prostate Biopsy, TURP-Transurethral Resection of Prostate, Other (See Below) Other Male Surgeries/Procedures: cystoscopy Endocrine Surgical History: Reports: None Neurological Surgical History: Reports: None Musculoskeletal Surgical History: Reports: Shoulder Surgery Other Musculoskeletal Surgeries/Procedures:: hammertoe correction Oncologic Surgical History: Reports: None Dermatological Surgical History: Reports: None Social & Family History - Family History Family Medical History: No Pertinent Family History - Tobacco Use Tobacco Use Status *Q: Never Tobacco User Second Hand Smoke Exposure: No - Caffeine Use Caffeine Use: Reports: None - Recreational Drug Use Recreational Drug Use: No H&P Review of Systems - Review of Systems: Review Of Systems: See Below General: Reports: No Symptoms. Denies: Fever, Chills, Malaise, Weakness, Fatigue HEENT: Reports: No Symptoms. Denies: Headaches, Sore Throat Pulmonary: Reports: Pleuritic Chest Pain. Denies: Shortness of Breath, Wheezing, Cough, Sputum Cardiovascular: Reports: Chest Pain (Lateral right around to back. ). Denies: Palpitations, Dyspnea on Exertion, Edema, Lightheadedness Gastrointestinal: Reports: No Symptoms. Denies: Abdominal Pain, Constipation, Diarrhea, Nausea, Vomiting Genitourinary: Reports: No Symptoms. Denies: Pain Musculoskeletal: Reports: Neck Pain (chronic ), Back Pain (chronic ) Skin: Reports: No Symptoms. Denies: Cyanosis Psychiatric: Reports: No Symptoms. Denies: Confusion Neurological: Reports: No Symptoms Hematologic/Lymphatic: Reports: No Symptoms Immunologic: Reports: No Symptoms Exam - Exam Exam: See Below - Vital Signs Vital Signs: Last Vital Signs Temp 98.8 F 03/09/21 07:13 Pulse 53 L 03/09/21 07:13 Resp 16 03/09/21 07:13 BP 119/66 03/09/21 07:13 Pulse Ox 95 03/09/21 07:13 Weight: 129 lb 12.8 oz - Exam Quality Assessment: DVT Prophylaxis. No: Supplemental Oxygen, Urinary Catheter General: Alert, Oriented, Cooperative, Mild Distress (looks uncomfortable with movement or deep inspiration) HEENT: Conjunctiva Clear, EACs Clear, EOMI, Mucosa Moist & [place], Posterior Pharynx Clear Neck: Supple, Trachea Midline Lungs: Clear to Auscultation, Normal Respiratory Effort, Other (Tender right l ateral chest and back ) Cardiovascular: Regular Rate, Regular Rhythm GI/Abdominal Exam: Normal Bowel Sounds, Soft, Non-Tender, No Distention (Male) Exam: Deferred Rectal (Males) Exam: Deferred Back Exam: Normal Inspection, Decreased Range of Motion (2/2 pain ) Extremities: Normal Inspection, Normal Range of Motion, Non-Tender, No Pedal Edema, Normal Capillary Refill Peripheral Pulses: 2+: Radial (L), Radial (R), Dorsalis Pedis (L), Dorsalis Pedis (R) Skin: Warm, Dry, Intact Neurological: Cranial Nerves Intact (grossly ) Neuro Extensive - Mental Status: Alert, Oriented x3, Normal Mood/Affect - Patient Data Lab Results Last 24 hrs: Laboratory Results - last 24 hr 03/08/21 03/08/21 03/08/21 Range/Units 19:33 19:33 21:53 WBC 15.99 H (4.23-9.07) K/mm3 RBC 4.76 (4.63-6.08) M/mm3 Hgb 14.3 (13.7-17.5) gm/dl Hct 43.2 (40.1-51.0) % MCV 90.8 (79.0-92.2) fl MCH 30.0 (25.7-32.2) pg MCHC 33.1 (32.2-35.5) g/dl RDW Std Deviation 42.6 (35.1-43.9) fL Plt Count 177 (163-337) K/mm3 MPV 9.6 (9.4-12.3) fl Neut % (Auto) 84.2 H (34.0-67.9) % Lymph % (Auto) 8.5 L (21.8-53.1) % [place] % (Auto) 6.1 (5.3-12.2) % Eos % (Auto) 0.8 (0.8-7.0) Baso % (Auto) 0.1 (0.1-1.2) % Neut # (Auto) 13.48 H (1.78-5.38) K/mm3 Lymph # (Auto) 1.36 (1.32-3.57) K/mm3 [place] # (Auto) 0.97 H (0.30-0.82) K/mm3 Eos # (Auto) 0.12 (0.04-0.54) K/mm3 Baso # (Auto) 0.02 (0.01-0.08) K/mm3 Manual Slide Review Normal smear Sodium 142 (136-145) mEq/L Potassium 3.8 (3.5-5.1) mEq/L Chloride 103 (98-107) mEq/L Carbon Dioxide 31 (21-32) mEq/L Anion Gap 11.8 (5-15) BUN 23 H (7-18) mg/dL Creatinine 1.2 (0.7-1.3) mg/dL Est Cr Clr Drug Dosing 46.41 mL/min Estimated GFR (MDRD) 59 (>60) mL/min BUN/Creatinine Ratio 19.2 H (14-18) Glucose 142 H (83-115) mg/dL Calcium 8.3 L (8.5-10.1) mg/dL Total Bilirubin 0.3 (0.2-1.0) mg/dL AST 21 (15-37) U/L ALT 26 (16-63) U/L Alkaline Phosphatase 103 (46-116) U/L Total Protein 6.9 (6.4-8.2) g/dl Albumin 3.7 (3.4-5.0) g/dl Globulin 3.2 gm/dL Albumin/Globulin Ratio 1.2 (1-2) Urine Color Yellow (Yellow) Urine Appearance Clear (Clear) Urine pH 7.0 (5.0-8.0) Ur Specific [place] 1.015 (1.005-1.030) Urine Protein Negative (Negative) Urine Glucose (UA) Negative (Negative) Urine Ketones Negative (Negative) Urine Occult Blood Negative (Negative) Urine Nitrite Negative (Negative) Urine Bilirubin Negative (Negative) Urine Urobilinogen 0.2 (0.2-1.0) Ur Leukocyte Esterase Negative (Negative) Urine RBC 0-5 (0-5) /hpf Urine WBC 0-5 (0-5) /hpf Ur Squamous Epith Cells 0-5 (0-5) /hpf Urine Bacteria Few (FEW) /hpf Urine Mucus Few (FEW) /hpf SARS-CoV-2 RNA (TERRI) (NEGATIVE) 03/08/21 Range/Units 23:06 WBC (4.23-9.07) K/mm3 RBC (4.63-6.08) M/mm3 Hgb (13.7-17.5) gm/dl Hct (40.1-51.0) % MCV (79.0-92.2) fl MCH (25.7-32.2) pg MCHC (32.2-35.5) g/dl RDW Std Deviation (35.1-43.9) fL Plt Count (163-337) K/mm3 MPV (9.4-12.3) fl Neut % (Auto) (34.0-67.9) % Lymph % (Auto) (21.8-53.1) % [place] % (Auto) (5.3-12.2) % Eos % (Auto) (0.8-7.0) Baso % (Auto) (0.1-1.2) % Neut # (Auto) (1.78-5.38) K/mm3 Lymph # (Auto) (1.32-3.57) K/mm3 [place] # (Auto) (0.30-0.82) K/mm3 Eos # (Auto) (0.04-0.54) K/mm3 Baso # (Auto) (0.01-0.08) K/mm3 Manual Slide Review Sodium (136-145) mEq/L Potassium (3.5-5.1) mEq/L Chloride (98-107) mEq/L Carbon Dioxide (21-32) mEq/L Anion Gap (5-15) BUN (7-18) mg/dL Creatinine (0.7-1.3) mg/dL Est Cr Clr Drug Dosing mL/min Estimated GFR (MDRD) (>60) mL/min BUN/Creatinine Ratio (14-18) Glucose (83-115) mg/dL Calcium (8.5-10.1) mg/dL Total Bilirubin (0.2-1.0) mg/dL AST (15-37) U/L ALT (16-63) U/L Alkaline Phosphatase (46-116) U/L Total Protein (6.4-8.2) g/dl Albumin (3.4-5.0) g/dl Globulin gm/dL Albumin/Globulin Ratio (1-2) Urine Color (Yellow) Urine Appearance (Clear) Urine pH (5.0-8.0) Ur Specific [place] (1.005-1.030) Urine Protein (Negative) Urine Glucose (UA) (Negative) Urine Ketones (Negative) Urine Occult Blood (Negative) Urine Nitrite (Negative) Urine Bilirubin (Negative) Urine Urobilinogen (0.2-1.0) Ur Leukocyte Esterase (Negative) Urine RBC (0-5) /hpf Urine WBC (0-5) /hpf Ur Squamous Epith Cells (0-5) /hpf Urine Bacteria (FEW) /hpf Urine Mucus (FEW) /hpf SARS-CoV-2 RNA (TERRI) Negative (NEGATIVE) Result Diagrams: 03/08/21 19:33 03/08/21 19:33 Sepsis Event Note - Evaluation Sepsis Screening Result: No Definite Risk - Focused Exam Vital Signs: Vital Signs Temp Pulse Resp BP Pulse Ox 03/09/21 07:13 98.8 F 53 L 16 119/66 95 03/09/21 06:06 99.1 F 53 L 18 124/61 94 L 03/09/21 00:25 98.6 F 59 L 20 148/67 H 95 - Problem List (1) Diverticulosis SNOMED Code(s): 754136808 ICD Code: K57.90 - DVRTCLOS OF INTEST, PART UNSP, W/O PERF OR ABSCESS W/O BLEED Status: Chronic Priority: Low Current Visit: No (2) IBS (irritable bowel syndrome) SNOMED Code(s): 61448256 ICD Code: K58.9 - IRRITABLE BOWEL SYNDROME WITHOUT DIARRHEA Status: Chronic Priority: Low Current Visit: No Qualifiers: Irritable bowel syndrome type: unspecified Qualified Code(s): K58.9 - Irritable bowel syndrome without diarrhea (3) BPH (benign prostatic hyperplasia) SNOMED Code(s): 520803050 ICD Code: N40.0 - BENIGN PROSTATIC HYPERPLASIA WITHOUT LOWER URINRY TRACT SYMP Status: Chronic Priority: Low Current Visit: No Qualifiers: Lower urinary tract symptom presence: symptoms absent Qualified Code(s): N40.0 - Benign prostatic hyperplasia without lower urinary tract symptoms (4) Arthritis SNOMED Code(s): 0639881 ICD Code: M19.90 - UNSPECIFIED OSTEOARTHRITIS, UNSPECIFIED SITE Status: Chronic Priority: Low Current Visit: No (5) Chronic back pain SNOMED Code(s): 947561053 ICD Code: M54.9 - DORSALGIA, UNSPECIFIED; G89.29 - OTHER CHRONIC PAIN Status: Chronic Priority: Medium Current Visit: No Qualifiers: Back pain location: back pain in unspecified location Back pain laterality: unspecified Qualified Code(s): M54.9 - Dorsalgia, unspecified; G89.29 - Other chronic pain (6) Chronic neck pain SNOMED Code(s): 6011654948349 ICD Code: M54.2 - CERVICALGIA; G89.29 - OTHER CHRONIC PAIN Status: Chronic Priority: Medium Current Visit: No (7) Osteoporosis SNOMED Code(s): 05694042 ICD Code: M81.0 - AGE-RELATED OSTEOPOROSIS W/O CURRENT PATHOLOGICAL FRACTURE Status: Chronic Priority: Medium Current Visit: No Qualifiers: Osteoporosis type: unspecified Presence of current pathological fracture: unspecified Qualified Code(s): M81.0 - Age-related osteoporosis without current pathological fracture (8) Anxiety SNOMED Code(s): 29426433 ICD Code: F41.9 - ANXIETY DISORDER, UNSPECIFIED Status: Chronic Priority: Low Current Visit: No (9) Depression SNOMED Code(s): 59291844 ICD Code: F32.9 - MAJOR DEPRESSIVE DISORDER, SINGLE EPISODE, UNSPECIFIED Status: Chronic Priority: Low Current Visit: No Qualifiers: Depression Type: other depression Qualified Code(s): F32.89 - Other specifi ed depressive episodes (10) History of Clostridioides difficile colitis SNOMED Code(s): 772716106, 515847483907387 ICD Code: Z86.19 - PERSONAL HISTORY OF OTHER INFECTIOUS AND PARASITIC DISEASES Status: Chronic Priority: Low Current Visit: No (11) Fall with injury SNOMED Code(s): 029056302 ICD Code: W19.XXXA - UNSPECIFIED FALL, INITIAL ENCOUNTER Status: Acute Priority: High Current Visit: Yes Qualifiers: Encounter type: initial encounter Qualified Code(s): W19.XXXA - Unspecified fall, initial encounter (12) Ribs, multiple fractures SNOMED Code(s): 6252994 ICD Code: S22.49XA - MULTIPLE FRACTURES OF RIBS, UNSP SIDE, INIT FOR CLOS FX Status: Acute Priority: High Current Visit: Yes Qualifiers: Encounter type: initial encounter Fracture type: closed Laterality: right Qualified Code(s): S22.41XA - Multiple fractures of ribs, right side, initial encounter for closed fracture Problem List Initiated/Reviewed/Updated: Yes Orders Last 24hrs: Active Orders 24 hr Category Date Time Status Admission Status [Patient Status] [ADT] Routine ADT 03/08/21 22:47 Active Activity as Tolerated [RC] .Routine Care 03/09/21 01:22 Active Ambulate [RC] ASDIRECTED Care 03/09/21 01:22 Active RT Incentive Spirometry [RC] Q1HWA Care 03/09/21 01:23 Active Regular Diet [DIET] Diet 03/09/21 Breakfast Active Acetaminophen/oxyCODONE [Percocet 325-5 MG] Med 03/09/21 00:32 Active 1 tab PO Q4H PRN HYDROmorphone [Dilaudid] Med 03/09/21 00:32 Active 1 mg IVPUSH Q4H PRN Sodium Chloride 0.9% [Saline Flush] Med 03/08/21 19:27 Active 10 ml FLUSH ASDIRECTED PRN Peripheral IV Insertion Adult [OM.PC] Stat Oth 03/08/21 19:26 Ordered Code Status [Resuscitation Status] Routine Resus Stat 03/09/21 01:22 Ordered Medication Orders Hydromorphone HCl (Hydromorphone 1 Mg/Ml Syringe) 1 mg IVPUSH Q4H PRN PRN Reason: Pain (severe 7-10) Oxycodone/Acetaminophen (Acetaminophen/Oxycodone 325-5 Mg Tab) 1 tab PO Q4H PRN PRN Reason: Pain (moderate 4-6) Last Admin: 03/09/21 06:09 Dose: 1 tab Documented by: Admin: 03/09/21 00:46 Dose: 1 tab Documented by: FRANK Sodium Chloride (Sodium Chloride 0.9% 10 Ml Syringe) 10 ml FLUSH ASDIRECTED PRN PRN Reason: Keep Vein Open Last Admin: 03/08/21 19:36 Dose: 10 ml Documented by: NELIDA Assessment/Plan Comment:: Assessment: 03/09/2021 (Admitted late 03/08/2021) * 75-year-old male fell down a steep embankment approximately 8 feet around 1500 on 03/08/2021. * Reports 7 out of 10 pain to right flank area with intermittent spasms of 10/10 pain, exacerbated by movement * Difficulty breathing due to pain. * Denies current neck or back pain, weakness, paresthesia of extremities, head injury, loss consciousness, reymundo pain, nausea, vomiting. * History of tachyarrhythmia, diverticulosis, hemorrhoids, IBS, BPH, arthritis, chronic back pain, chronic neck pain, osteoporosis, anxiety, depression, prior C. difficile infection. * Chest x-ray obtained in ED shows enlarged heart and mild granulomatous change within the left lung but nothing acute * CT of abdomen and pelvis shows fractures within the right ninth through 11th ribs posteriorly with mild adjacent pleural thickening and other findings. No other acute abnormality seen. * Labs obtained in ED: * WBC 15.99. * Hemoglobin 14.3 * Platelet 177,000 * Neutrophils elevated 84.2% * Sodium 142 * Potassium 3.8 * Chloride 103 * Carbon dioxide 31 * Anion gap 11.8 * BUN 23, creatinine 1.2, GFR 59 * Glucose 142 * Total bilirubin 0.3 * AST 21, ALT 26, alkaline phosphatase 103 * Albumin 3.7 * UA negative * SARS Covid 2 RNA negative * Given morphine, Percocet, and Dilaudid for pain * Admitted to the medical floor observation status for pain management of acute rib fractures PLAN: Fall with injury Ribs, multiple fractures * PT/OT * Pain medications as ordered * Flexeril for spasms * IS * Ambulate with assistance * Colace PRN Arthritis Chronic back pain Chronic neck pain Osteoporosis * No acute concerns * Pain management as above Diverticulosis IBS (irritable bowel syndrome) History of Clostridioides difficile colitis * No acute concerns * Home medications as ordered BPH (benign prostatic hyperplasia) * No acute concerns Anxiety Depression * No acute concerns * Continue home Zoloft Code status: Full code PCP: Zoey Chaidez NP DVT prophylaxis: SCDs Social: Patient resides at the [facility] Disposition: Admitted to medical floor observation status for management of pain related to multiple rib fractures. Length of stay 1 to 2 days total. - Mortality Measure Prognosis:: Good <Jose Rodriguez - Last Filed: 03/09/21 14:12> H&P History of Present Illness - General Admit Problem/Dx: Admission Diagnosis/Problem Admission Diagnosis/Problem Rib injury Exam - Vital Signs Vital Signs: Last Vital Signs Temp 97.9 F 03/09/21 12:16 Pulse 48 L 03/09/21 12:16 Resp 14 03/09/21 12:16 BP 105/58 L 03/09/21 12:16 Pulse Ox 97 03/09/21 12:16 - Patient Data Lab Results Last 24 hrs: Laboratory Results - last 24 hr 03/08/21 03/08/21 03/08/21 Range/Units 19:33 19:33 21:53 WBC 15.99 H (4.23-9.07) K/mm3 RBC 4.76 (4.63-6.08) M/mm3 Hgb 14.3 (13.7-17.5) gm/dl Hct 43.2 (40.1-51.0) % MCV 90.8 (79.0-92.2) fl MCH 30.0 (25.7-32.2) pg MCHC 33.1 (32.2-35.5) g/dl RDW Std Deviation 42.6 (35.1-43.9) fL Plt Count 177 (163-337) K/mm3 MPV 9.6 (9.4-12.3) fl Neut % (Auto) 84.2 H (34.0-67.9) % Lymph % (Auto) 8.5 L (21.8-53.1) % [place] % (Auto) 6.1 (5.3-12.2) % Eos % (Auto) 0.8 (0.8-7.0) Baso % (Auto) 0.1 (0.1-1.2) % Neut # (Auto) 13.48 H (1.78-5.38) K/mm3 Lymph # (Auto) 1.36 (1.32-3.57) K/mm3 [place] # (Auto) 0.97 H (0.30-0.82) K/mm3 Eos # (Auto) 0.12 (0.04-0.54) K/mm3 Baso # (Auto) 0.02 (0.01-0.08) K/mm3 Manual Slide Review Normal smear Sodium 142 (136-145) mEq/L Potassium 3.8 (3.5-5.1) mEq/L Chloride 103 (98-107) mEq/L Carbon Dioxide 31 (21-32) mEq/L Anion Gap 11.8 (5-15) BUN 23 H (7-18) mg/dL Creatinine 1.2 (0.7-1.3) mg/dL Est Cr Clr Drug Dosing 46.41 mL/min Estimated GFR (MDRD) 59 (>60) mL/min BUN/Creatinine Ratio 19.2 H (14-18) Glucose 142 H (83-115) mg/dL Calcium 8.3 L (8.5-10.1) mg/dL Total Bilirubin 0.3 (0.2-1.0) mg/dL AST 21 (15-37) U/L ALT 26 (16-63) U/L Alkaline Phosphatase 103 (46-116) U/L Total Protein 6.9 (6.4-8.2) g/dl Albumin 3.7 (3.4-5.0) g/dl Globulin 3.2 gm/dL Albumin/Globulin Ratio 1.2 (1-2) Urine Color Yellow (Yellow) Urine Appearance Clear (Clear) Urine pH 7.0 (5.0-8.0) Ur Specific [place] 1.015 (1.005-1.030) Urine Protein Negative (Negative) Urine Glucose (UA) Negative (Negative) Urine Ketones Negative (Negative) Urine Occult Blood Negative (Negative) Urine Nitrite Negative (Negative) Urine Bilirubin Negative (Negative) Urine Urobilinogen 0.2 (0.2-1.0) Ur Leukocyte Esterase Negative (Negative) Urine RBC 0-5 (0-5) /hpf Urine WBC 0-5 (0-5) /hpf Ur Squamous Epith Cells 0-5 (0-5) /hpf Urine Bacteria Few (FEW) /hpf Urine Mucus Few (FEW) /hpf SARS-CoV-2 RNA (TERRI) (NEGATIVE) 03/08/21 Range/Units 23:06 WBC (4.23-9.07) K/mm3 RBC (4.63-6.08) M/mm3 Hgb (13.7-17.5) gm/dl Hct (40.1-51.0) % MCV (79.0-92.2) fl MCH (25.7-32.2) pg MCHC (32.2-35.5) g/dl RDW Std Deviation (35.1-43.9) fL Plt Count (163-337) K/mm3 MPV (9.4-12.3) fl Neut % (Auto) (34.0-67.9) % Lymph % (Auto) (21.8-53.1) % [place] % (Auto) (5.3-12.2) % Eos % (Auto) (0.8-7.0) Baso % (Auto) (0.1-1.2) % Neut # (Auto) (1.78-5.38) K/mm3 Lymph # (Auto) (1.32-3.57) K/mm3 [place] # (Auto) (0.30-0.82) K/mm3 Eos # (Auto) (0.04-0.54) K/mm3 Baso # (Auto) (0.01-0.08) K/mm3 Manual Slide Review Sodium (136-145) mEq/L Potassium (3.5-5.1) mEq/L Chloride (98-107) mEq/L Carbon Dioxide (21-32) mEq/L Anion Gap (5-15) BUN (7-18) mg/dL Creatinine (0.7-1.3) mg/dL Est Cr Clr Drug Dosing mL/min Estimated GFR (MDRD) (>60) mL/min BUN/Creatinine Ratio (14-18) Glucose (83-115) mg/dL Calcium (8.5-10.1) mg/dL Total Bilirubin (0.2-1.0) mg/dL AST (15-37) U/L ALT (16-63) U/L Alkaline Phosphatase (46-116) U/L Total Protein (6.4-8.2) g/dl Albumin (3.4-5.0) g/dl Globulin gm/dL Albumin/Globulin Ratio (1-2) Urine Color (Yellow) Urine Appearance (Clear) Urine pH (5.0-8.0) Ur Specific [place] (1.005-1.030) Urine Protein (Negative) Urine Glucose (UA) (Negative) Urine Ketones (Negative) Urine Occult Blood (Negative) Urine Nitrite (Negative) Urine Bilirubin (Negative) Urine Urobilinogen (0.2-1.0) Ur Leukocyte Esterase (Negative) Urine RBC (0-5) /hpf Urine WBC (0-5) /hpf Ur Squamous Epith Cells (0-5) /hpf Urine Bacteria (FEW) /hpf Urine Mucus (FEW) /hpf SARS-CoV-2 RNA (TERRI) Negative (NEGATIVE) Result Diagrams: 03/08/21 19:33 03/08/21 19:33 Sepsis Event Note - Focused Exam Vital Signs: Vital Signs Temp Pulse Resp BP Pulse Ox 03/09/21 12:16 97.9 F 48 L 14 105/58 L 97 03/09/21 09:14 95 03/09/21 07:13 98.8 F 53 L 16 119/66 95 03/09/21 06:06 99.1 F 53 L 18 124/61 94 L Orders Last 24hrs: Active Orders 24 hr Category Date Time Status Admission Status [Patient Status] [ADT] Routine ADT 03/08/21 22:47 Active Activity as Tolerated [RC] .Routine Care 03/09/21 01:22 Active Ambulate [RC] ASDIRECTED Care 03/09/21 01:22 Active Antiembolic Devices [RC] PER UNIT ROUTINE Care 03/09/21 09:15 Active Oxygen Therapy [RC] PRN Care 03/09/21 09:14 Active Pulse Oximetry [RC] PRN Care 03/09/21 09:14 Active RT Incentive Spirometry [RC] Q1HWA Care 03/09/21 01:23 Active Up With Assistance [RC] ASDIRECTED Care 03/09/21 09:36 Active VTE/DVT Education [RC] PER UNIT ROUTINE Care 03/09/21 09:14 Active Vital Signs [RC] Q4H Care 03/09/21 09:14 Active Consult to Case Management/[employer] [CONS] Cons 03/09/21 09:14 Active Routine Consult to Occupational Therapy [OT Evaluation and Cons 03/09/21 09:04 Active Treatment] [CONS] Routine Consult to Spiritual Care [CONS] Routine Cons 03/09/21 09:14 Active PT Evaluation and Treatment [CONS] Routine Cons 03/09/21 09:04 Active Regular Diet [DIET] Diet 03/09/21 Breakfast Active BASIC METABOLIC PANEL,BMP [CHEM] AM Lab 03/10/21 05:11 Ordered BASIC METABOLIC PANEL,BMP [CHEM] AM Lab 03/11/21 05:11 Ordered BASIC METABOLIC PANEL,BMP [CHEM] AM Lab 03/12/21 05:11 Ordered BASIC METABOLIC PANEL,BMP [CHEM] AM Lab 03/13/21 05:11 Ordered CBC WITH AUTO DIFF [HEME] AM Lab 03/10/21 05:11 Ordered CBC WITH AUTO DIFF [HEME] AM Lab 03/11/21 05:11 Ordered CBC WITH AUTO DIFF [HEME] AM Lab 03/12/21 05:11 Ordered CBC WITH AUTO DIFF [HEME] AM Lab 03/13/21 05:11 Ordered MAGNESIUM [CHEM] AM Lab 03/10/21 05:11 Ordered MAGNESIUM [CHEM] AM Lab 03/11/21 05:11 Ordered MAGNESIUM [CHEM] AM Lab 03/12/21 05:11 Ordered MAGNESIUM [CHEM] AM Lab 03/13/21 05:11 Ordered Acetaminophen [TylenoL] Med 03/09/21 09:14 Active 650 mg PO Q4H PRN Acetaminophen/oxyCODONE [Percocet 325-5 MG] Med 03/09/21 00:32 Active 1 tab PO Q4H PRN Cyclobenzaprine [Flexeril] Med 03/09/21 09:05 Active 10 mg PO TID PRN Docusate Sodium [Colace] Med 03/09/21 09:14 Active 100 mg PO BID PRN HYDROmorphone [Dilaudid] Med 03/09/21 00:32 Active 1 mg IVPUSH Q4H PRN Loperamide [Imodium] Med 03/09/21 09:09 Active 2 mg PO ASDIRECTED PRN Magnesium Hydroxide [Milk of Magnesia] Med 03/09/21 09:14 Active 30 ml PO Q12H PRN Ondansetron [Zofran] Med 03/09/21 09:14 Active 4 mg IV Q6H PRN Sertraline [Zoloft] Med 03/09/21 21:00 Ordered 150 mg PO BEDTIME Sertraline [Zoloft] Med 03/10/21 08:00 Pending 50 mg PO QAM Sodium Chloride 0.9% [Saline Flush] Med 03/08/21 19:27 Active 10 ml FLUSH ASDIRECTED PRN calcium polycarbophiL [Fibercon] Med 03/09/21 15:00 Active 625 mg PO TID Peripheral IV Insertion Adult [OM.PC] Stat Oth 03/08/21 19:26 Ordered Sequential Compression Device [OM.PC] Per Unit Routine Oth 03/09/21 09:15 Ordered Code Status [Resuscitation Status] Routine Resus Stat 03/09/21 01:22 Ordered Medication Orders Acetaminophen (Acetaminophen 325 Mg Tab) 650 mg PO Q4H PRN PRN Reason: Pain (Mild 1-3)/fever Calcium Polycarbophil (Calcium Polycarbophil 625 Mg Tab) 625 mg PO TID CORRY Cyclobenzaprine HCl (Cyclobenzaprine 10 Mg Tab) 10 mg PO TID PRN PRN Reason: Spasms Docusate Sodium (Docusate Sodium 100 Mg Cap) 100 mg PO BID PRN PRN Reason: Constipation Hydromorphone HCl (Hydromorphone 1 Mg/Ml Syringe) 1 mg IVPUSH Q4H PRN PRN Reason: Pain (severe 7-10) Loperamide HCl (Loperamide 2 Mg Cap) 2 mg PO ASDIRECTED PRN PRN Reason: Diarrhea Magnesium Hydroxide (Magnesium Hydroxide 400 Mg/5 Ml Susp 30 Ml Cup) 30 ml PO Q12H PRN PRN Reason: Constipation Non-Formulary Medication (Sertraline [Zoloft]) 50 mg PO QAM CORRY Non-Formulary Medication (Sertraline [Zoloft]) 150 mg PO BEDTIME CORRY Ondansetron HCl (Ondansetron 4 Mg/2 Ml Sdv) 4 mg IV Q6H PRN PRN Reason: Nausea/Vomiting Oxycodone/Acetaminophen (Acetaminophen/Oxycodone 325-5 Mg Tab) 1 tab PO Q4H PRN PRN Reason: Pain (moderate 4-6) Last Admin: 03/09/21 06:09 Dose: 1 tab Documented by: Admin: 03/09/21 00:46 Dose: 1 tab Documented by: FRANK Sodium Chloride (Sodium Chloride 0.9% 10 Ml Syringe) 10 ml FLUSH ASDIRECTED PRN PRN Reason: Keep Vein Open Last Admin: 03/08/21 19:36 Dose: 10 ml Documented by: NELIAD Assessment/Plan Comment:: Patient seen and examined agree with the advanced practitioner's management to include assessment and plan. I have discussed plan of care have independently evaluated the patient, laboratory work-up, imaging studies, prior admission/outpatient records have been reviewed as pertinent to current admission A: Acute Rib Fracture- Right 9-11 Ribs, no pneumothorax, no flail segment Acute pain secondary to trauma Fall Depression BPH P: Pain control, patient did well with Toradol If continued pain consider nerve block with anesthesia IS PT evaluation Watch for possible pulmonary contusion/acute hypoxic respiratory failure Expect able to DC in AM
[2021-03-09] MEDS ORDERED: Ketorolac 30 MG/ML SDV IVPUSH ONE (08:54)
[2021-03-09] MEDS ORDERED: Cyclobenzaprine 10 MG Tab PO PRN (09:05)
[2021-03-09] MEDS ORDERED: Loperamide 2 MG Cap PO PRN (09:09)
[2021-03-09] MEDS ORDERED: Magnesium Hydroxide 400 MG/5 ML Susp 30 ML Cup PO PRN (09:14)
[2021-03-09] MEDS ORDERED: Ondansetron 4 MG/2 ML SDV IV PRN (09:14)
[2021-03-09] MEDS ORDERED: Acetaminophen 325 MG Tab PO PRN (09:14)
[2021-03-09] MEDS ORDERED: Docusate Sodium 100 MG Cap PO PRN (09:14)
[2021-03-09] MEDS ORDERED: Psyllium Husk Powder Sugar Free 5.85 GM Packet PO SCH (10:00)
[2021-03-09] MEDS: Calcium Polycarbophil 625 MG Tab PO SCH ×2 (14:55→20:58)
[2021-03-09] MEDS: Ketorolac 30 MG/ML SDV IVPUSH PRN (17:11)
[2021-03-09] MEDS ORDERED: Sertraline 50 MG Tab PO SCH (21:00)
[2021-03-10] MEDS: Acetaminophen/oxyCODONE 325-5 MG Tab PO PRN ×2 (02:34→09:19)
[2021-03-10] MEDS: Ketorolac 30 MG/ML SDV IVPUSH PRN (03:48)
[2021-03-10] MEDS ORDERED: Sertraline 50 MG Tab PO SCH (09:00)
[2021-03-10] MEDS: Calcium Polycarbophil 625 MG Tab PO SCH (09:19)
--- NOTE | 2021-03-10 09:43 | PCM.DCSUM1 ---
<Elijah James - Last Filed: 03/10/21 13:29> Discharge Summary - Hospital Course HPI Initial Comments: This is a 75-year-old male who presented to ED on 03/08/2021 with pain after a fall. Reports incident occurred around 1500 hrs. states he got too close to an edge of an embankment and the ground gave way leading to an approximately 8 foot fall. Reports 7 out of 10 pain in the right flank area is constant and intermittent spasms of 10 out of 10 pain. Reports pain is worsened with movemen t and certain positions. Denies any other neck or back pain. Reports shortness of breath due to the pain. Denies any weakness or paresthesias of extremities. Denies head injury, loss of consciousness, reymundo pain, nausea, vomiting. Stated he did not take anything prior to arrival. In the ED temp was 36.3 Celsius. Pulse 55. Respirations 12. Blood pressure 121/85. Pulse ox 90%. Labs are obtained showing a leukocytosis of 15.99. Hemoglobin 14.3. Platelet 177,000. Neutrophils are elevated 84.2. Sodium 142. Potassium 3.8. Chloride 103. Carbon dioxide 31. Anion gap 11.8. BUN is e levated 23. Creatinine 1.2. GFR is 59. Glucose 142. Bilirubin 0.3. AST is 21, ALT 26, alkaline phosphatase 103. Albumin is 3.7. UA is negative. Chest x-ray is obtained showing slightly enlarged heart size and mild granulomatous change within the left lung but nothing acute. CT of the abdomen and pelvis is obtained showing fractures within the right ninth through 11th ribs posteriorly and mild adjacent pleural thickening but no other acute abnormalities are noted. There are other incidental findings. He is given morphine, Dilaudid, and percocet for pain. It is felt given his advanced age, pain severity, and impairment due to pain that he should be admitted to the hospital. He subsequently admitted observation status to the medical surgical floor for pain management of his multiple rib fractures. He carries a history of tachyarrhythmia, diverticulosis, gastritis, IBS, BPH, arthritis, chronic back pain, chronic neck pain, osteoporosis, anxiety, depression, prior C. difficile infection. He was never smoker. He is a full code. Diagnosis: Stroke: No - Discharge Data Discharge Date: 05/04/21 (Admit date: 03/09/2021) Discharge Disposition: Home, Self-Care 01 Condition: Good - Referral to Home Health Primary Care Physician: Zoey Chaidez NP - Discharge Diagnosis/Problem(s) (1) Diverticulosis SNOMED Code(s): 620472791 ICD Code: K57.90 - DVRTCLOS OF INTEST, PART UNSP, W/O PERF OR ABSCESS W/O BLEED Status: Chronic Priority: Low (2) IBS (irritable bowel syndrome) SNOMED Code(s): 80996222 ICD Code: K58.9 - IRRITABLE BOWEL SYNDROME WITHOUT DIARRHEA Status: Chronic Priority: Low Qualifiers: Irritable bowel syndrome type: unspecified Qualified Code(s): K58.9 - Irritable bowel syndrome without diarrhea (3) BPH (benign prostatic hyperplasia) SNOMED Code(s): 509094464 ICD Code: N40.0 - BENIGN PROSTATIC HYPERPLASIA WITHOUT LOWER URINRY TRACT SYMP Status: Chronic Priority: Low Qualifiers: Lower urinary tract symptom presence: symptoms absent Qualified Code(s): N40.0 - Benign prostatic hyperplasia without lower urinary tract symptoms (4) Arthritis SNOMED Code(s): 1630737 ICD Code: M19.90 - UNSPECIFIED OSTEOARTHRITIS, UNSPECIFIED SITE Status: Chronic Priority: Low (5) Chronic back pain SNOMED Code(s): 884137956 ICD Code: M54.9 - DORSALGIA, UNSPECIFIED; G89.29 - OTHER CHRONIC PAIN Status: Chronic Priority: Medium Qualifiers: Back pain location: back pain in unspecified location Back pain laterality: unspecified Qualified Code(s): M54.9 - Dorsalgia, unspecified; G89.29 - Other chronic pain (6) Chronic neck pain SNOMED Code(s): 3831381489110 ICD Code: M54.2 - CERVICALGIA; G89.29 - OTHER CHRONIC PAIN Status: Chronic Priority: Medium (7) Osteoporosis SNOMED Code(s): 44632702 ICD Code: M81.0 - AGE-RELATED OSTEOPOROSIS W/O CURRENT PATHOLOGICAL FRACTURE Status: Chronic Priority: Medium Qualifiers: Osteoporosis type: unspecified Presence of current pathological fracture: unspecified Qualified Code(s): M81.0 - Age-related osteoporosis without current pathological fracture (8) Anxiety SNOMED Code(s): 79023970 ICD Code: F41.9 - ANXIETY DISORDER, UNSPECIFIED Status: Chronic Priority: Low (9) Depression SNOMED Code(s): 62393634 ICD Code: F32.9 - MAJOR DEPRESSIVE DISORDER, SINGLE EPISODE, UNSPECIFIED Status: Chronic Priority: Low Qualifiers: Depression Type: other depression Qualified Code(s): F32.89 - Other specified depressive episodes (10) History of Clostridioides difficile colitis SNOMED Code(s): 448295635, 032759492939513 ICD Code: Z86.19 - PERSONAL HISTORY OF OTHER INFECTIOUS AND PARASITIC DISEASES Status: Chronic Priority: Low (11) Fall with injury SNOMED Code(s): 208638671 ICD Code: W19.XXXA - UNSPECIFIED FALL, INITIAL ENCOUNTER Status: Acute Priority: High Qualifiers: Encounter type: initial encounter Qualified Code(s): W19.XXXA - Unspecified fall, initial encounter (12) Ribs, multiple fractures SNOMED Code(s): 4820220 ICD Code: S22.49XA - MULTIPLE FRACTURES OF RIBS, UNSP SIDE, INIT FOR CLOS FX Status: Acute Priority: High Qualifiers: Encounter type: initial encounter Fracture type: closed Laterality: right Qualified Code(s): S22.41XA - Multiple fractures of ribs, right side, initial encounter for closed fracture - Patient Summary/Data Consults: Consultations 03/09/21 09:04 Consult to Occupational Therapy [OT Evaluation and Treatment] [CONS] Routine PT Evaluation and Treatment [CONS] Routine 03/09/21 09:14 Consult to Case Management/Appraiser Auditor [CONS] Routine Consult to Spiritual Care [CONS] Routine Labs Pending at D/C: None Recommended Follow-up Testing/Procedures: Follow-up with primary care provider within 7-10 days of discharge, sooner if needed. -Recommend repeat CBC, CMP, and magnesium at that time. -Consider repeat imaging -Patient prescribed Percocet and colace at discharge. Hospital Course: This is a 75-year-old male who presented to ED on 03/08/2021 after a fall of approximately 8 feet down a steep embankment. Patient was reporting significant pain to right flank and chest area and difficulty breathing. He was noted to have a fracture of the right ninth through 11th rib posteriorly and mild adjacent pleural thickening. He was admitted to observation status for pain management. He was utilizing Percocet and Toradol for pain control. No signs of any respiratory distress or failure. He was given an incentive spirometer and was using this regularly. Patient does report a history of constipation and he was given Colace and Metamucil. He did see our PT and OT department who recommended patient utilize a walker while ambulating and otherwise felt the patient was safe for discharge back to the [facility], where he resides in [place]. Per the patient he has access to multiple ambulation devices including walkers and a motorized cart. He was instructed to continue to utilize incentive spirometer for 1 to 2 weeks or until symptoms resolve. Was directed to follow-up with his primary care provider within 7 to 10 days of discharge, sooner if needed. He was prescribed Percocet for more severe pain and Tylenol for lesser pain. He was also prescribed Colace for constipation. A ll other home meds were continued. He was instructed to return the emergency room or contact his primary care provider should symptoms return or worsen. Discharged today. - Patient Instructions Diet: Usual Diet as Tolerated Activity: As Tolerated Driving: Do Not Drive Showering/Bathing: May Shower Notify Provider of: Fever, Increased Pain, Nausea and/or Vomiting Other/Special Instructions: Follow-up with primary care provider within 7-10 days of discharge, sooner if needed. Take your pain medications as needed. The goal would be to take them less and less and wean down your usage. You may transition to over the counter tylenol as the pain improves. The pain medications you were prescribed may make you constipated. You were prescribed a medication for this. Physical therapy recommended you utilize a walker while walking. Continue to utilize your incentive spirometer (clear/blue device you inhale through) for 1-2 more weeks or until symptoms resolve. Should symptoms return or worsen contact your primary care provider or return to the Emergency Department. - Discharge Plan *PRESCRIPTION DRUG MONITORING PROGRAM REVIEWED*: No *COPY OF PRESCRIPTION DRUG MONITORING REPORT IN PATIENT JULIO CESAR: No Prescriptions/Med Rec: Docusate Sodium [Colace] 100 mg PO BID PRN #20 cap PRN Reason: Constipation Acetaminophen/oxyCODONE [Percocet 325-5 MG] 1 tab PO Q4H PRN #20 tablet PRN Reason: Pain (Moderate 4-6) Home Medications: Home Meds Calcium Carbonate [Calcium] 1,000 mg PO DAILY 11/29/18 [History] Loperamide [Imodium] 2 mg PO ASDIRECTED PRN 11/29/18 [History] Multivitamin [Poly-Vitamin] 1 tab PO DAILY 11/29/18 [History] Psyllium [Metamucil] 1 cap PO TID 11/29/18 [History] Sertraline [Zoloft] 150 mg PO BEDTIME 11/29/18 [History] Acetaminophen [Tylenol] 650 mg PO Q4H PRN 05/20/19 [History] Sertraline [Zoloft] 50 mg PO QAM 05/20/19 [History] Acetaminophen/oxyCODONE [Percocet 325-5 MG] 1 tab PO Q4H PRN #20 tablet 03/10/21 [Rx] Docusate Sodium [Colace] 100 mg PO BID PRN #20 cap 03/10/21 [Rx] Oxygen Therapy Mode: Room Air Patient Handouts: How to Use an Incentive Spirometer, Rib Fracture, [id number] Referrals: Zoey Chaidez NP [Primary Care Provider] - 03/18/21 10:00 am (check in time at 10:00) - Discharge Summary/Plan Comment DC Time >30 min.: Yes (45 mins ) - General Info Date of Service: 03/10/21 Admission Dx/Problem (Free Text: Admission Diagnosis/Problem Admission Diagnosis/Problem Rib injury Functional Status: Reports: Pain Controlled, Tolerating Diet, Ambulating, Urinating, Incentive Spirometry. Denies: New Symptoms - Review of Systems General: Reports: No Symptoms. Denies: Fever, Weakness, Fatigue, Malaise, Chills HEENT: Reports: No Symptoms. Denies: Headaches, Sore Throat Pulmonary: Reports: Pleuritic Chest Pain. Denies: Shortness of Breath, Cough, Sputum, Wheezing Cardiovascular: Reports: Chest Pain (Right side around to flank area with movement and deep inspiration ). Denies: Palpitations, Dyspnea on Exertion, Edema Gastrointestinal: Reports: No Symptoms. Denies: Abdominal Pain, Constipation, Diarrhea, Nausea, Vomiting Genitourinary: Reports: No Symptoms. Denies: Pain Musculoskeletal: Reports: No Symptoms Skin: Reports: No Symptoms. Denies: Cyanosis Neurological: Reports: No Symptoms. Denies: Confusion, Pre-Existing Deficit, Difficulty Walking, Weakness, Gait Disturbance Psychiatric: Reports: No Symptoms - Patient Data Vitals - Most Recent: Last Vital Signs Temp 96.8 F L 03/10/21 07:46 Pulse 46 L 03/10/21 07:46 Resp 16 03/10/21 07:46 BP 124/64 03/10/21 07:46 Pulse Ox 97 03/10/21 07:46 Weight - Most Recent: 130 lb 3.2 oz I&O - Last 24 hours: Intake & Output 03/09/21 03/10/21 03/10/21 22:59 06:59 14:59 Intake Total 1440 200 Output Total 500 600 Balance 940 -400 Lab Results - Last 24 hrs: Laboratory Results - last 24 hr 03/10/21 03/10/21 Range/Units 05:10 05:10 WBC 9.20 H (4.23-9.07) K/mm3 RBC 5.01 (4.63-6.08) M/mm3 Hgb 14.6 (13.7-17.5) gm/dl Hct 44.8 (40.1-51.0) % MCV 89.4 (79.0-92.2) fl MCH 29.1 (25.7-32.2) pg MCHC 32.6 (32.2-35.5) g/dl RDW Std Deviation 42.1 (35.1-43.9) fL Plt Count 134 L (163-337) K/mm3 MPV 9.2 L (9.4-12.3) fl Neut % (Auto) 76.8 H (34.0-67.9) % Lymph % (Auto) 13.8 L (21.8-53.1) % [place] % (Auto) 7.5 (5.3-12.2) % Eos % (Auto) 1.5 (0.8-7.0) Baso % (Auto) 0.2 (0.1-1.2) % Neut # (Auto) 7.06 H (1.78-5.38) K/mm3 Lymph # (Auto) 1.27 L (1.32-3.57) K/mm3 [place] # (Auto) 0.69 (0.30-0.82) K/mm3 Eos # (Auto) 0.14 (0.04-0.54) K/mm3 Baso # (Auto) 0.02 (0.01-0.08) K/mm3 Sodium 136 (136-145) mEq/L Potassium 4.6 (3.5-5.1) mEq/L Chloride 102 (98-107) mEq/L Carbon Dioxide 30 (21-32) mEq/L Anion Gap 8.6 (5-15) BUN 15 (7-18) mg/dL Creatinine 1.0 (0.7-1.3) mg/dL Est Cr Clr Drug Dosing 53.32 mL/min Estimated GFR (MDRD) > 60 (>60) mL/min BUN/Creatinine Ratio 15.0 (14-18) Glucose 112 (83-115) mg/dL Calcium 7.9 L (8.5-10.1) mg/dL Magnesium 2.0 (1.8-2.4) mg/dl Med Orders - Current: Current Medications Acetaminophen (Acetaminophen 325 Mg Tab) 650 mg PO Q4H PRN PRN Reason: Pain (Mild 1-3)/fever Calcium Polycarbophil (Calcium Polycarbophil 625 Mg Tab) 625 mg PO TID CORRY Last Admin: 03/10/21 09:19 Dose: 625 mg Documented by: Cyclobenzaprine HCl (Cyclobenzaprine 10 Mg Tab) 10 mg PO TID PRN PRN Reason: Spasms Docusate Sodium (Docusate Sodium 100 Mg Cap) 100 mg PO BID PRN PRN Reason: Constipation Last Admin: 03/10/21 03:49 Dose: 100 mg Documented by: Hydromorphone HCl (Hydromorphone 1 Mg/Ml Syringe) 1 mg IVPUSH Q4H PRN PRN Reason: Pain (severe 7-10) Ketorolac Tromethamine (Ketorolac 30 Mg/Ml Sdv) 30 mg IVPUSH Q8H PRN PRN Reason: Pain (moderate 4-6) Last Admin: 03/10/21 03:48 Dose: 30 mg Documented by: Loperamide HCl (Loperamide 2 Mg Cap) 2 mg PO ASDIRECTED PRN PRN Reason: Diarrhea Magnesium Hydroxide (Magnesium Hydroxide 400 Mg/5 Ml Susp 30 Ml Cup) 30 ml PO Q12H PRN PRN Reason: Constipation Ondansetron HCl (Ondansetron 4 Mg/2 Ml Sdv) 4 mg IV Q6H PRN PRN Reason: Nausea/Vomiting Oxycodone/Acetaminophen (Acetaminophen/Oxycodone 325-5 Mg Tab) 1 tab PO Q4H PRN PRN Reason: Pain (moderate 4-6) Last Admin: 03/10/21 09:19 Dose: 1 tab Documented by: Sertraline HCl (Sertraline 50 Mg Tab) 50 mg PO DAILY [facility] Last Admin: 03/10/21 09:19 Dose: 50 mg Documented by: Sertraline HCl (Sertraline 50 Mg Tab) 150 mg PO BEDTIME [facility] Last Admin: 03/09/21 20:58 Dose: 150 mg Documented by: Sodium Chloride (Sodium Chloride 0.9% 10 Ml Syringe) 10 ml FLUSH ASDIRECTED PRN PRN Reason: Keep Vein Open Last Admin: 03/08/21 19:36 Dose: 10 ml Documented by: Discontinued Medications Iopamidol (Iopamidol 612 Mg/Ml 100 Ml Bottle) 100 ml IVPUSH ONETIME ONE Stop: 03/08/21 20:13 Last Admin: 03/08/21 20:30 Dose: 100 ml Documented by: Ketorolac Tromethamine (Ketorolac 30 Mg/Ml Sdv) 30 mg IVPUSH ONETIME ONE Stop: 03/09/21 08:55 Last Admin: 03/09/21 09:04 Dose: 30 mg Documented by: Morphine Sulfate (Morphine 4 Mg/Ml Syringe) 4 mg IVPUSH ONETIME ONE Stop: 03/08/21 19:31 Last Admin: 03/08/21 19:37 Dose: 4 mg Documented by: Morphine Sulfate (Morphine 4 Mg/Ml Syringe) 4 mg IVPUSH ONETIME ONE Stop: 03/08/21 22:13 Last Admin: 03/08/21 22:25 Dose: 4 mg Documented by: Sodium Chloride (Sodium Chloride 0.9% 10 Ml Syringe) 10 ml FLUSH ONETIME ONE Stop: 03/08/21 20:13 Last Admin: 03/08/21 20:30 Dose: 10 ml Documented by: - Exam Quality Assessment: Reports: DVT Prophylaxis. Denies: Supplemental Oxygen, Urine Catheter General: Reports: Alert, Oriented, Cooperative HEENT: Reports: Pupils Equal, Pupils Reactive, Mucous Membr. Moist/[place] Neck: Reports: Supple, Trachea Midline Lungs: Reports: Clear to Auscultation, Normal Respiratory Effort Cardiovascular: Reports: Regular Rate, Regular Rhythm, Other (Pain to right lateral chest wall with palpation ) GI/Abdominal Exam: Normal Bowel Sounds, Soft, Non-Tender, No Distention (Male) Exam: Deferred Rectal (Males) Exam: Deferred Back Exam: Reports: Normal Inspection, Full Range of Motion Extremities: Normal Inspection, Normal Range of Motion, Non-Tender, No Pedal Edema, Normal Capillary Refill Skin: Reports: Warm, Dry, Intact Neurological: Reports: No New Focal Deficit Psy/Mental Status: Reports: Alert, Normal Affect, Normal Mood <Jose Rodriguez - Last Filed: 03/12/21 10:03> Discharge Summary - Referral to Home Health Primary Care Physician: Zoey Chaidez NP - Patient Summary/Data Consults: Consultations 03/09/21 09:04 Consult to Occupational Therapy [OT Evaluation and Treatment] [CONS] Routine PT Evaluation and Treatment [CONS] Routine 03/09/21 09:14 Consult to Case Management/Appraiser Auditor [CONS] Routine Consult to Spiritual Care [CONS] Routine - Discharge Summary/Plan Comment Discharge Summary/Plan Comment: Patient seen and examined agree with the advanced practitioner's management to include assessment and plan. I have discussed plan of care have independently evaluated the patient, laboratory work-up, imaging studies, prior admission /outpatient records have been reviewed as pertinent to current admission - Patient Data Vitals - Most Recent: Last Vital Signs Temp 96.8 F L 03/10/21 07:46 Pulse 46 L 03/10/21 07:46 Resp 16 03/10/21 07:46 BP 124/64 03/10/21 07:46 Pulse Ox 97 03/10/21 09:14 Med Orders - Current: Current Medications Discontinued Medications Acetaminophen (Acetaminophen 325 Mg Tab) 650 mg PO Q4H PRN PRN Reason: Pain (Mild 1-3)/fever Calcium Polycarbophil (Calcium Polycarbophil 625 Mg Tab) 625 mg PO TID CORRY Last Admin: 03/10/21 09:19 Dose: 625 mg Documented by: Cyclobenzaprine HCl (Cyclobenzaprine 10 Mg Tab) 10 mg PO TID PRN PRN Reason: Spasms Docusate Sodium (Docusate Sodium 100 Mg Cap) 100 mg PO BID PRN PRN Reason: Constipation Last Admin: 03/10/21 03:49 Dose: 100 mg Documented by: Hydromorphone HCl (Hydromorphone 1 Mg/Ml Syringe) 1 mg IVPUSH Q4H PRN PRN Reason: Pain (severe 7-10) Iopamidol (Iopamidol 612 Mg/Ml 100 Ml Bottle) 100 ml IVPUSH ONETIME ONE Stop: 03/08/21 20:13 Last Admin: 03/08/21 20:30 Dose: 100 ml Documented by: Ketorolac Tromethamine (Ketorolac 30 Mg/Ml Sdv) 30 mg IVPUSH ONETIME ONE Stop: 03/09/21 08:55 Last Admin: 03/09/21 09:04 Dose: 30 mg Documented by: Ketorolac Tromethamine (Ketorolac 30 Mg/Ml Sdv) 30 mg IVPUSH Q8H PRN PRN Reason: Pain (moderate 4-6) Last Admin: 03/10/21 03:48 Dose: 30 mg Documented by: Loperamide HCl (Loperamide 2 Mg Cap) 2 mg PO ASDIRECTED PRN PRN Reason: Diarrhea Magnesium Hydroxide (Magnesium Hydroxide 400 Mg/5 Ml Susp 30 Ml Cup) 30 ml PO Q12H PRN PRN Reason: Constipation Morphine Sulfate (Morphine 4 Mg/Ml Syringe) 4 mg IVPUSH ONETIME ONE Stop: 03/08/21 19:31 Last Admin: 03/08/21 19:37 Dose: 4 mg Documented by: Morphine Sulfate (Morphine 4 Mg/Ml Syringe) 4 mg IVPUSH ONETIME ONE Stop: 03/08/21 22:13 Last Admin: 03/08/21 22:25 Dose: 4 mg Documented by: Ondansetron HCl (Ondansetron 4 Mg/2 Ml Sdv) 4 mg IV Q6H PRN PRN Reason: Nausea/Vomiting Oxycodone/Acetaminophen (Acetaminophen/Oxycodone 325-5 Mg Tab) 1 tab PO Q4H PRN PRN Reason: Pain (moderate 4-6) Last Admin: 03/10/21 09:19 Dose: 1 tab Documented by: Sertraline HCl (Sertraline 50 Mg Tab) 50 mg PO DAILY [facility] Last Admin: 03/10/21 09:19 Dose: 50 mg Documented by: Sertraline HCl (Sertraline 50 Mg Tab) 150 mg PO BEDTIME [facility] Last Admin: 03/09/21 20:58 Dose: 150 mg Documented by: Sodium Chloride (Sodium Chloride 0.9% 10 Ml Syringe) 10 ml FLUSH ASDIRECTED PRN PRN Reason: Keep Vein Open Last Admin: 03/08/21 19:36 Dose: 10 ml Documented by: Sodium Chloride (Sodium Chloride 0.9% 10 Ml Syringe) 10 ml FLUSH ONETIME ONE Stop: 03/08/21 20:13 Last Admin: 03/08/21 20:30 Dose: 10 ml Documented by:
== END 2021-03-10 12:17 | disposition home or self-care (01) ==
LOC: JD.ED 18:44 → JD.MS 22:47
PROVIDERS: ADMIT Internal Medicine; ATTEND Internal Medicine
DX: S22.41XA Multiple fractures of ribs, right side, initial encounter for closed fracture (principal); J92.9 Pleural plaque without asbestos; K57.90 Diverticulosis of intestine, part unspecified, without perforation or abscess without bleeding; K58.9 Irritable bowel syndrome, unspecified; N40.0 Benign prostatic hyperplasia without lower urinary tract symptoms; M19.90 Unspecified osteoarthritis, unspecified site; M54.9 Dorsalgia, unspecified; M54.2 Cervicalgia; G89.29 Other chronic pain; M81.0 Age-related osteoporosis without current pathological fracture; F41.9 Anxiety disorder, unspecified; F32.89 Other specified depressive episodes; Z20.822 Contact with and (suspected) exposure to COVID-19; Z88.1 Allergy status to other antibiotic agents; Z88.2 Allergy status to sulfonamides; Z88.8 Allergy status to other drugs, medicaments and biological substances; Z86.19 Personal history of other infectious and parasitic diseases; W19.XXXA Unspecified fall, initial encounter
CPT/HCPCS: 36415; 71046; 74177; 80048; 80053; 81001; 83735; 85025; 96374; 96375; 96376; 97162; 97165; 97530; 97535; 99285; A9270; G0378; J1885; J2270; Q9967; U0002; 99284

== ENCOUNTER 2021-04-06 20:50 | Emergency (ER) | payer MEDICARE, BC ==
[2021-04-06] MEDS ORDERED: Sodium Chloride 0.9% 10 ML Syringe FLUSH PRN (21:12)
--- NOTE | 2021-04-06 22:17 | EDM.PDOC ---
ED HPI GENERAL MEDICAL PROBLEM - General Chief Complaint: Cardiovascular Problem Stated Complaint: RHB AND HEARTBURN Time Seen by Provider: 04/06/21 21:00 Source of Information: Reports: Patient, RN Notes Reviewed - History of Present Illness INITIAL COMMENTS - FREE TEXT/NARRATIVE: 75 yr old male had sensation of rapid heart rate about an hour ago. He states his oximeter read his heart rate out at "200". Sx lasted for about 10 minutes. Mild chest tightness and dizziness now gone. Has had this occasionally in the past. Has not been otherwise recently ill. - Related Data Allergies Allergy/AdvReac Type Severity Reaction Status Date / Time amoxicillin [From Augmentin] Allergy Itching Verified 04/06/21 20:58 clavulanic acid Allergy Itching Verified 04/06/21 20:58 [From Augmentin] sulfamethoxazole Allergy Itching Verified 04/06/21 20:58 [From Bactrim] trimethoprim [From Bactrim] Allergy Itching Verified 04/06/21 20:58 clindamycin AdvReac Diarrhea Verified 04/06/21 20:58 diclofenac [From Voltaren] AdvReac Diarrhea Verified 04/06/21 20:58 paroxetine [From Paxil] AdvReac Stomach Verified 04/06/21 20:58 Upset Home Meds: Home Meds Calcium Carbonate [Calcium] 1,000 mg PO DAILY 11/29/18 [History] Loperamide [Imodium] 2 mg PO ASDIRECTED PRN 11/29/18 [History] Multivitamin [Poly-Vitamin] 1 tab PO DAILY 11/29/18 [History] Psyllium [Metamucil] 1 cap PO TID 11/29/18 [History] Sertraline [Zoloft] 150 mg PO BEDTIME 11/29/18 [History] Acetaminophen [Tylenol] 650 mg PO Q4H PRN 05/20/19 [History] Sertraline [Zoloft] 50 mg PO QAM 05/20/19 [History] Docusate Sodium [Colace] 100 mg PO BID PRN #20 cap 03/10/21 [Rx] Past Medical History HEENT History: Reports: Other (See Below) Other HEENT History: wear glasses; voice is off Cardiovascular History: Reports: [place] Respiratory History: Reports: None Gastrointestinal History: Reports: Diverticulosis, GERD, Hemorrhoids, Irritable Bowel Syndrome, Other (See Below) Other Gastrointestinal History: colitis Genitourinary History: Reports: BPH PATIENT TRANSITION SPECIALIST History: Reports: None Musculoskeletal History: Reports: Arthritis, Back Pain, Chronic, Neck Pain, Chronic, Osteoporosis Neurological History: Reports: None Psychiatric History: Reports: Anxiety, Depression Endocrine/Metabolic History: Reports: Osteopenia Hematologic History: Reports: None Immunologic History: Reports: None Oncologic (Cancer) History: Reports: None Dermatologic History: Reports: None - Infectious Disease History Infectious Disease History: Reports: C-Difficile - Past Surgical History HEENT Surgical History: Reports: Cataract Surgery, Naso-Sinus Surgery, Oral Surgery, Tonsillectomy Cardiovascular Surgical History: Reports: None Respiratory Surgical History: Reports: None GI Surgical History: Reports: Colonoscopy, EGD Male Surgical History: Reports: Prostate Biopsy, TURP-Transurethral Resection of Prostate, Other (See Below) Other Male Surgeries/Procedures: cystoscopy Endocrine Surgical History: Reports: None Neurological Surgical History: Reports: None Musculoskeletal Surgical History: Reports: Shoulder Surgery Other Musculoskeletal Surgeries/Procedures:: hammertoe correction Oncologic Surgical History: Reports: None Dermatological Surgical History: Reports: None Social & Family History - Family History Family Medical History: No Pertinent Family History - Tobacco Use Tobacco Use Status *Q: Never Tobacco User - Caffeine Use Caffeine Use: Reports: Soda - Recreational Drug Use Recreational Drug Use: No ED ROS GENERAL - Review of Systems Review Of Systems: See Below Constitutional: Denies: Fever, Chills, Diaphoresis HEENT: Reports: No Symptoms Respiratory: Denies: Shortness of Breath, Pleuritic Chest Pain Cardiovascular: Reports: Chest Pain, Lightheadedness GI/Abdominal: Denies: Abdominal Pain, Diarrhea, Nausea, Vomiting Musculoskeletal: Denies: Neck Pain, Shoulder Pain, Arm Pain, Back Pain Skin: Reports: No Symptoms Neurological: Reports: Dizziness. Denies: Trouble Speaking, Difficulty Walking ED EXAM, GENERAL - Physical Exam Exam: See Below General Appearance: Alert, No Apparent Distress Throat/Mouth: Normal Inspection Head: Atraumatic. No: Facial Swelling Neck: Supple Respiratory/Chest: No Respiratory Distress, Lungs Clear, Normal Breath Sounds Cardiovascular: Regular Rate, Rhythm GI/Abdominal: Soft, Non-Tender Back Exam: No: CVA Tenderness (L), CVA Tenderness (R) Extremities: Normal Inspection. No: Pedal Edema, Leg Pain, Increased Warmth, Redness Neurological: Alert, Oriented, No Motor/Sensory Deficits Skin Exam: Warm, Dry, Normal Color #1 Interpretation EKG Date: 04/06/21 Rhythm: NSR Bailey: Normal P-Wave: Present QRS: Other (q waves V2) ST-T: Depressed (mild depression AVF and V3) Course - Vital Signs Last Recorded V/S: Last Vital Signs Temp 97.2 F 04/06/21 21:07 Pulse 70 04/06/21 21:07 Resp 20 04/06/21 21:07 BP 127/81 04/06/21 21:07 Pulse Ox 97 04/06/21 21:07 - Orders/Labs/Meds Orders: Active Orders 24 hr Category Date Time Status Chest 1V Frontal [CR] Stat Exams 04/06/21 21:22 Taken Peripheral IV Insertion Adult [OM.PC] Stat Oth 04/06/21 21:12 Ordered Labs: Laboratory Tests 04/06/21 04/06/21 Range/Units 21:05 21:05 WBC 7.41 (4.23-9.07) K/mm3 RBC 4.89 (4.63-6.08) M/mm3 Hgb 14.7 (13.7-17.5) gm/dl Hct 43.8 (40.1-51.0) % MCV 89.6 (79.0-92.2) fl MCH 30.1 (25.7-32.2) pg MCHC 33.6 (32.2-35.5) g/dl RDW Std Deviation 43.7 (35.1-43.9) fL Plt Count 154 L (163-337) K/mm3 MPV 9.3 L (9.4-12.3) fl Neut % (Auto) 64.1 (34.0-67.9) % Lymph % (Auto) 24.0 (21.8-53.1) % [place] % (Auto) 8.9 (5.3-12.2) % Eos % (Auto) 2.3 (0.8-7.0) Baso % (Auto) 0.4 (0.1-1.2) % Neut # (Auto) 4.75 (1.78-5.38) K/mm3 Lymph # (Auto) 1.78 (1.32-3.57) K/mm3 [place] # (Auto) 0.66 (0.30-0.82) K/mm3 Eos # (Auto) 0.17 (0.04-0.54) K/mm3 Baso # (Auto) 0.03 (0.01-0.08) K/mm3 Sodium 139 (136-145) mEq/L Potassium 3.8 (3.5-5.1) mEq/L Chloride 102 (98-107) mEq/L Carbon Dioxide 31 (21-32) mEq/L Anion Gap 9.8 (5-15) BUN 18 (7-18) mg/dL Creatinine 1.0 (0.7-1.3) mg/dL Est Cr Clr Drug Dosing 55.94 mL/min Estimated GFR (MDRD) > 60 (>60) mL/min BUN/Creatinine Ratio 18.0 (14-18) Glucose 108 H (70-99) mg/dL Calcium 8.7 (8.5-10.1) mg/dL Total Bilirubin 0.3 (0.2-1.0) mg/dL AST 30 (15-37) U/L ALT 34 (16-63) U/L Alkaline Phosphatase 128 H (46-116) U/L Troponin I < 0.017 (0.00-0.056) ng/mL Total Protein 7.2 (6.4-8.2) g/dl Albumin 3.7 (3.4-5.0) g/dl Globulin 3.5 gm/dL Albumin/Globulin Ratio 1.1 (1-2) Meds: Medications Discontinued Medications Generic Name Dose Route Start Last Admin Trade Name Freq PRN Reason Stop Dose Admin Sodium Chloride 10 ml 04/06/21 21:12 04/06/21 21:16 Sodium Chloride 0.9% 10 Ml Syringe FLUSH 10 ml ASDIRECTED PRN Administration Keep Vein Open - Re-Assessments/Exams Free Text/Narrative Re-Assessment/Exam: 04/06/21 23:42 labs relatively normal. Cardiac moniter and EKG shows sinus rythm, no ectopy. CXR nl. Will send home with 48 hr holter moniter. Departure - Departure Time of Disposition: 22:40 Disposition: Home, Self-Care 01 Condition: Fair Clinical Impression: Palpitations, Tachycardia Instructions: Palpitations Referrals: Zoey Chaidez NP [Primary Care Provider] - Forms: ED Department Discharge Additional Instructions: Rest. Drink plenty of water to maintain hydration. 48 hour holter moniter. Follow up with you regular medical provider in about 1 week for holter moniter results. Call for appointment. Return to ED as needed if symptoms worsening in any way. Sepsis Event Note (ED) - Evaluation Sepsis Screening Result: No Definite Risk - Focused Exam Vital Signs: Vital Signs Temp Pulse Resp BP Pulse Ox 04/06/21 21:07 97.2 F 70 20 127/81 97 - My Orders Last 24 Hours: My Active Orders 04/06/21 21:12 Peripheral IV Insertion Adult [OM.PC] Stat 04/06/21 21:22 Chest 1V Frontal [CR] Stat - Assessment/Plan Last 24 Hours: My Active Orders 04/06/21 21:12 Peripheral IV Insertion Adult [OM.PC] Stat 04/06/21 21:22 Chest 1V Frontal [CR] Stat
--- NOTE | 2021-04-07 10:44 | CR ---
Chest: Frontal view of the chest was obtained. Comparison: Prior chest x-rays of 05/29/20 and 05/30/17. Heart size and mediastinum are within normal limits. Lungs show no acute parenchymal change. Slight granulomatous change is noted within the left lung which remains stable. No acute osseous abnormality is appreciated. Impression: 1. Findings as noted above. 2. Nothing acute is appreciated on frontal chest x-ray. Diagnostic code #2
== END 2021-04-06 22:50 | disposition home or self-care (01) ==
LOC: JD.ED 20:50
DX: R00.2 Palpitations (principal); R00.0 Tachycardia, unspecified; I25.2 Old myocardial infarction; Z88.0 Allergy status to penicillin; Z88.2 Allergy status to sulfonamides; Z88.1 Allergy status to other antibiotic agents; Z88.6 Allergy status to analgesic agent; Z88.8 Allergy status to other drugs, medicaments and biological substances; Z79.899 Other long term (current) drug therapy
CPT/HCPCS: 36415; 71045; 71045-26; 80053; 84484; 85025; 93005; 93010; 93225; 93226; 99284; 99285-25

== ENCOUNTER 2022-07-11 23:42 | Emergency (ER) | payer MEDICARE, BC | END 2022-07-12 02:14 | disposition home or self-care (01) | LOC: JD.ED 23:42 | DX: R00.2 Palpitations (principal); I25.2 Old myocardial infarction; Z88.0 Allergy status to penicillin; Z88.2 Allergy status to sulfonamides; Z88.1 Allergy status to other antibiotic agents; Z88.8 Allergy status to other drugs, medicaments and biological substances; Z79.899 Other long term (current) drug therapy | CPT/HCPCS: 36415; 80053; 83735; 84443; 84484; 85025; 93005; 93010; 99283; 99285 ==

== ENCOUNTER 2024-01-24 07:00 | Day surgery (SDC) | payer MEDICARE, BC ==
[2024-01-24] MEDS ORDERED: Sodium Chloride 0.9% 10 ML Syringe FLUSH PRN (07:13)
[2024-01-24] MEDS: Lactated Ringers 1,000 ML IV SCH (07:15)
[2024-01-24] MEDS ORDERED: fentaNYL 100 MCG/2 ML SDV ONE (07:18)
[2024-01-24] MEDS ORDERED: Midazolam 1 MG/ML 2 ML SDV ONE (07:18)
[2024-01-24] MEDS ORDERED: Lidocaine 1% 5 ML VIAL ONE (07:19)
[2024-01-24] MEDS ORDERED: Propofol 200 MG/20 ML SDV ONE (07:19)
[2024-01-24] MEDS ORDERED: Vancomycin 1 GM SDV ONE (08:08)
[2024-01-24] MEDS ORDERED: ceFAZolin 2 GM Vial ONE (08:12)
[2024-01-24] MEDS: Lidocaine 1% 30 ML SDV ONE (08:21)
[2024-01-24] MEDS: Bupivacaine 0.5% 30 ML SDV ONE (08:21)
[2024-01-24] MEDS ORDERED: fentaNYL 100 MCG/2 ML SDV IVPUSH PRN (08:38)
[2024-01-24] MEDS ORDERED: Ondansetron 4 MG/2 ML SDV IVPUSH PRN (08:38)
[2024-01-24] MEDS ORDERED: Sodium Chloride 0.9% 10 ML Syringe FLUSH SCH (09:00)
== END 2024-01-24 11:05 | disposition home or self-care (01) ==
LOC: JD.SDS 07:00
PROVIDERS: ATTEND Podiatrist Foot & Ankle Surgery
DX: M20.41 Other hammer toe(s) (acquired), right foot (principal); K21.9 Gastro-esophageal reflux disease without esophagitis; F41.9 Anxiety disorder, unspecified; F32.A Depression, unspecified; E78.5 Hyperlipidemia, unspecified; I25.2 Old myocardial infarction; Z88.1 Allergy status to other antibiotic agents; Z88.2 Allergy status to sulfonamides; Z88.8 Allergy status to other drugs, medicaments and biological substances; Z90.89 Acquired absence of other organs; Z98.890 Other specified postprocedural states; Z79.899 Other long term (current) drug therapy
CPT/HCPCS: 28285; 76000; C1776; J0665; J0690; J2250; J2704; J3010; J7120; J3370; J3490

== ENCOUNTER 2024-01-24 20:44 | Emergency (ER) | payer MEDICARE, BC ==
[2024-01-24] MEDS: Acetaminophen/oxyCODONE 325-5 MG Tab PO ONE (22:04)
== END 2024-01-24 22:16 | disposition home or self-care (01) ==
LOC: JD.ED 20:44
DX: L76.22 Postprocedural hemorrhage of skin and subcutaneous tissue following other procedure (principal); G89.18 Other acute postprocedural pain; K21.9 Gastro-esophageal reflux disease without esophagitis; Z79.899 Other long term (current) drug therapy; Z88.8 Allergy status to other drugs, medicaments and biological substances; Z88.0 Allergy status to penicillin; Z88.2 Allergy status to sulfonamides; Z88.1 Allergy status to other antibiotic agents
CPT/HCPCS: 99283; A9270